=== PATIENT | male | born 1945 | race Caucasian/White ===

== ENCOUNTER 2017-11-01 08:30 | Inpatient (IN) ==
--- NOTE | 2017-12-15 18:00 | MH ---
cc: Bull Lazar Rohit K MD Watry,Wing Tiffanie Palacios MD,Cas DELGADO (Emdat Autofax) DATE OF ADMISSION: 12/18/2017 ADMITTING DIAGNOSIS: Lumbar degenerative disk disease. HISTORY OF PRESENT ILLNESS: This is a 72-year-old male who presented to us for an evaluation of low back pain that he has had for the last 5 years, progressively getting worse and it has been real bad over the last 3 years. He currently rates his pain as 10/10. He denies any radiculopathy or paresthesias in the lower extremities. He states that his legs will buckle on him. His pain improves with lying down. He has been on pain management and had extensive pain management strategies including rhizotomies in a total of 5, as well as 5 sets of 3 epidural steroid injections. He has been to physical therapy had 5 sessions, which exacerbated his pain. He states that he can only stand for about 10-15 minutes. He states that he has tried to avoid walking. If he has to walk, such as when he goes to the store, he finds a place to sit or stays in the car. He had an epidural stimulator placed, which also was not helping. He has a history of coronary artery disease with stent placement in 2014. He also has a history of protein in his blood that causes blood clots and states that he has had a pulmonary embolus in 2013. 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 PAST MEDICAL HISTORY: Significant for: 1. Pulmonary embolus. 2. Coronary artery disease, status post coronary stent placement. 3. Hyperlipidemia. 4. Hypertension. 5. Emphysema. 6. Anemia. 7. Several vocal cord biopsies, 2011, 2013, 2014. 7. Cholecystectomy. 8. Tonsillectomy bilaterally, 2013. CURRENT MEDICATIONS: 1. Aspirin 81 mg daily. 2. Simvastatin 80 mg daily. 3. Omeprazole 40 mg daily. 4. Multivitamin daily. 5. Lisinopril 20 mg p.o. daily. 6. [place] 7.5/325. 7. Fish oil 1000 mg. This was placed on hold prior to surgical intervention. 8. Coumadin 4 mg. This was placed on hold prior to surgical intervention. 9. Carvedilol 12.5 mg. ALLERGIES: HE HAS NO KNOWN DRUG ALLERGIES. SOCIAL HISTORY: The patient drinks alcohol. He quit smoking 5 years ago. He was smoking half a pack for 25 years. FAMILY HISTORY: His mother is . His father is , has a history of congestive heart failure and at age 85. REVIEW OF SYSTEMS: CONSTITUTIONAL: He denies any fever or chills. EARS, NOSE AND THROAT: The patient has had previous biopsies of his vocal cord. Mild voice hoarseness. No nasal drainage. CARDIOVASCULAR: Denies any chest pain or palpitations. RESPIRATORY: No cough or shortness of breath. GENITOURINARY: No dysuria or hematuria. MUSCULOSKELETAL: Positive for low back pain. INTEGUMENTARY: No rashes or pruritus. NEUROLOGIC: No difficulty with speech and memory. PSYCHIATRIC: No anxiety or depression symptoms. ENDOCRINE: No polyuria, polydipsia. HEMATOLOGIC: Positive for bruising secondary to his Coumadin use. PHYSICAL EXAMINATION: HEENT: Head is normocephalic, atraumatic. NECK: Supple. No carotid bruits. LUNGS: Clear to auscultation bilaterally. HEART: Normal sinus rhythm. He has 3/5 right sternal border murmur. ABDOMEN: Soft, nontender, positive bowel sounds. SKIN: No cyanosis or erythema. MUSCULOSKELETAL: He has 5/5 strength in the lower extremities. He ambulates without any assistive device. NEUROLOGIC: He is awake, alert, and oriented. Cranial nerves 2-12 are grossly intact. Her speech is fluent. Comprehension is good. Reflexes are 2+ in the lower extremities. DATA REVIEWED: MRI of the lumbar spine reveals multilevel degenerative disk disease with facet arthropathy, most pronounced at the L4/L5 and L5-S1 levels with associated grade 1 spondylolisthesis, but other levels are also degenerated. IMPRESSION: A 71-year-old male with a chronic history of low back pain, which is intractable essentially. The patient and his state that he is unable to walk even short distances and basically sleeps and sits on the couch all day. He underwent physical therapy which aggravated his symptoms. He has undergone multiple bouts of interventional pain management including rhizotomies. He has a dorsal column spinal stimulator in place, which he says is not working to control his pain and he wants this removed. The patient is requesting that we undertake a lumbar spine surgery. He has not been able to find somebody to remove his spinal stimulator. Again, he has multilevel degenerative disk disease with facet arthropathy, most pronounced at the L4/L5 and L5-S1 level with associated grade 1 spondylolisthesis, but other levels are also degenerated. PLAN: We have discussed treatment options, which include continued conservative treatment measures with physical therapy and pain management, which he states has not helped him in the past versus surgical intervention, which would entail an L4/L5 and L5-S1 interbody fusion with cage and pedicle screw fixation. We have discussed the risk involved with surgery, which given his history of pulmonary embolus as well as coronary artery disease with anticardiolipin antibody, and he is on chronic Coumadin therapy. The patient and his are willing to accept the risks of surgery, which include, but are not limited to bleeding, infection, muscle weakness, voice hoarseness, difficulty swallowing, heart attack, stroke, blood clots in his arms, legs, and lungs, heart attack, stroke, as well as muscle weakness among others. He also understands that lumbar spine surgery will not make him pain free, but the goal is to lessen his pain and allow him to be able to ambulate with less pain, but there is also possibility that he may not benefit from surgery and even be worse afterwards. 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 Again, the patient states that he understands the procedure as well as the risks involved and he is requesting that we proceed and he was therefore scheduled accordingly. KINJAL Haas MD KOBE/ct , 04:53 PM , 05:07 PM ELSA
[2017-12-18] MEDS ORDERED: Chlorhexidine Gluconate 2% 1 Pack (2 Cloths) TOPICAL ONE (06:34)
[2017-12-18] MEDS ORDERED: Metoprolol Tartrate 25 MG Tablet PO ONE (06:34)
[2017-12-18] MEDS ORDERED: Vancomycin Inj 1,000 MG in Sodium Chlor 0.9% Inj 250 ML IV.SIG PRN (06:36)
[2017-12-18] MEDS ORDERED: Sodium Chlor 0.9% Inj 500 ML IV.SIG SCH (07:00)
[2017-12-18 07:41] LABS: INR 1.1 Ratio; Prothrombin Time 11.6 sec (9.8-11.6)
[2017-12-18] MEDS ORDERED: Thrombin Topical Soln 5,000 UNIT Vial TOPICAL ONE ×2 (07:49→07:55)
[2017-12-18] MEDS ORDERED: Bupivacaine/Epinephrine 0.5% Inj 50 ML Vial ONE (07:49)
[2017-12-18] MEDS ORDERED: Gelatin Size 100 Topical Foam ONE ×2 (07:49→09:03)
[2017-12-18] MEDS: Sod Chloride 0.9% Inj 1,000 ML IV.SIG SCH (08:15)
[2017-12-18] MEDS ORDERED: Phenylephrine/NS 1000 MCG/10ML Syringe IV.PUSH ONE (08:36)
[2017-12-18] MEDS ORDERED: Sodium Chlor 0.9% Inj 250 ML IV.CONT ONE (08:36)
[2017-12-18] MEDS ORDERED: Lidocaine PF 1% Inj 5 ML Syringe OTHER ONE (08:36)
[2017-12-18] MEDS ORDERED: Glycopyrrolate Inj 1 MG/5 ML Syringe IV.PUSH ONE (08:36)
[2017-12-18] MEDS ORDERED: Artificial Tears Opth Oint 3.5 GM Tube ONE (08:41)
[2017-12-18] MEDS ORDERED: Thrombin Topical 20,000 UNIT Spray Kit TOPICAL ONE (11:19)
[2017-12-18] MEDS ORDERED: Menthol 5.8 MG Lozenge BUCCAL PRN (13:34)
[2017-12-18] MEDS ORDERED: Bisacodyl 10 MG Supp RECTAL PRN (13:34)
[2017-12-18] MEDS ORDERED: Potassium Chlor 20 mEq Premix 20 MEQ/100 ML PIGGYBACK IV.SIG PRN (13:34)
[2017-12-18] MEDS ORDERED: Aluminum/Magnesium/Simethacone Susp 30 ML UDC PO PRN (13:34)
[2017-12-18] MEDS ORDERED: Calcium Gluconate Inj 1 GM in Sodium Chlor 0.9% Inj 100 ML IV.SIG PRN (13:34)
[2017-12-18] MEDS ORDERED: Zolpidem Tartrate 5 MG Tablet PO PRN (13:34)
[2017-12-18] MEDS ORDERED: Magnesium Sulfate Inj 2 GM in Sodium Chlor 0.9% Inj 96 ML IV.SIG PRN (13:34)
--- NOTE | 2017-12-18 13:46 | P.OP ---
- Preoperative Diagnosis (1) Chronic low back pain with bilateral sciatica (2) Lumbar degenerative disc disease (3) Spondylolisthesis, lumbar region (4) Lumbar facet arthropathy (5) Neural foraminal stenosis of lumbosacral spine Date of procedure: 12/18/17 Procedure: L4-5 and L5-S1 interbody fusion; L4, L5 and S1 decompressive laminotomies with facetectomies and foraminotomies; L4-S1 pedicle screw fixation; L4-5 interbody cage placement; microsurgical technique Anesthesia: GETA Surgeon: Reji Matos MD Firebreak Cutter: Virginia Ricketts Estimated blood loss (mL): 300 Operation and Findings: This was a difficult case due to severe degenerative disc disease with associated spondylolisthesis and extensive epidural fibrosis and scar tissue inflammatory response. The [id number] details of the procedure, indications, alternatives, risks and potential complications were fully discussed with the patient. The patient fully understood. All the questions were answered. No guarantees were given. The patient voiced requesting the procedure and provided informed consents. The patient was offered the alternative of delaying the procedure and continuing with nonsurgical management. Prior to the procedure, the surgical incision was marked in the preoperative surgical holding room, and the procedure, risks, and potential complications revisited with the patient. Placement of electrodes for intraoperative neurophysiological monitoring was completed. The patient was taken to the operative room, and following induction of general anesthesia, endotracheal intubation was performed. A Lopez catheter, bilateral LAURA hose and sequential compression devices were placed and kept throughout the procedure. The patient was positioned prone, over a Darci table over a Sushant frame. All pressure in the preoperative surgical holding room points were carefully padded. The eyes were tapped shut after ointment was applied by the anesthesiologist to prevent corneal abrasion. A Marko hugger was placed over the exposed lower body to maintain control of the core body temperature. The lumbar region was prepped and draped in the usual sterile fashion. Once the patient was positioned, a localizing cross-table lateral x-ray was performed with a C-arm. A right paramedian incision was outlined on the skin approximately 3cm from the midline. The skin incision made with a #10 blade. Small bleeders were controlled with the cautery. The dissection was then carried out into deeper planes and through the thoracolumbar fascia with a Bovie. The intermuscular septum was identified and the mucles were blunted dissected along the septum. The facets and transverse process at the left L4-5 and L5-S1 levels were exposed and the proper anatomical landmarks were identified. A microsurgical self-retaining retractor was placed on the incision , and a localizing lateralizing cross-table x-ray was performed. Intraoperative microscope magnification used for further dissection. There was significant facet and ligamentum flavum hypertrophy noted. The left L4-5 and L5 -S1 facets were resected with a drill bit along with the lamina and there was severe foraminal and lateral recess stenosis from hypertrophied ligamentum flavum along with the spondylolisthesis and disc height collapse and facet hypertrophy which was decompressed. There was disc height collapse from the degeneration along with disc protrusion also leading to the foraminal stenosis. There was extensive facet and ligamentum flavum hypertrophy with epidural fibrosis from the inflammation with a difference to the dura which had to be gently peeled off of but no CSF leak was encountered. Epidural hemostasis was achieved with bipolar cautery and Gelfoam with thrombin. Subsequently entered into the disc space at the L4-5 and L5-S1 levels with a #15 blade and sofie were used for discectomy. The L5-S1 level could not be distracted and was locked in place and after decorticating the endplates a pack this was local autograft bone for interbody fusion. I then placed PEEK cage at the L4-5 level packed with local autograft bone and more local autograft bone was packed adjacent to the cage in interspace for added interbody fusion. With placement of the cage, I was able to distract the interspace and opened up the foramen further bilaterally. Subsequently in order to facilitate the fusion and provide stabilization, pedicle screw fixation was undertaken using [place] spine screws on entry point at the left L4, L5 levels at the junction of the transverse process and facet and the left S1 through the sacral ala and pedicle into the body. Subsequently using AP and lateral fluoroscopy tap and screw placement. The screws were then connected with a margarette and locked in place with caps. The construct appeared very secure at this point. The area was then copiously irrigated with Vancomycin solution and powder. The retractors were removed and the bipolar cautery used for hemostasis. The muscle fascia was then approximated using 2-0 Vicryl interrupted stitches and then 3-0 Vicryl subcuticular stitches also placed in interrupted fashion. The final skin closure was completed with Mastisol and Steri-Strips. A sterile dressing was then applied. The patient then turned in supine position, extubated and taken to recovery room. There were no intraoperative complications. All sponge and needle counts were correct at the end of procedure. Estimated blood loss about 300 ml.
[2017-12-18] MEDS ORDERED: Sugammadex Inj 200 MG/2 ML Vial IV.PUSH ONE (13:58)
[2017-12-18] MEDS ORDERED: fentaNYL Citrate Inj 100 MCG/2 ML Ampul ONE ×2 (13:58→13:59)
--- NOTE | 2017-12-18 13:59 | XR ---
EXAM DATE: 12/18/2017 12:00 AM EDT AGE/SEX: 72 years / Male INDICATIONS: Post-op L4-L5, L5-S1 posterior lumbar fusion. CLINICAL DATA: This is the patient's initial encounter. Patient reports that signs and symptoms have been present for 1 day and indicates a pain score of Nonresponsive. MEDICAL/SURGICAL HISTORY: Non-responsive. Non-responsive. COMPARISON: No prior exams available for comparison. FINDINGS: 2 coned-down views of the lower lumbar spine demonstrate left-sided transpedicular screw and margarette fixa tion at L4 S1. Hardware appears intact and grossly well-positioned. Advanced degenerative changes are noted at L4-5 and L5-S1 with mild anterolisthesis of L5 on S1. CONCLUSION: 1. L4-S1 posterior fixation, as above. Electronically signed by: Sanjiv Solis MD 12/18/2017 1:58 PM EDT
[2017-12-18] MEDS ORDERED: *morphine SULFATE 4 MG/ML PERIprocedure ONLY ONE ×2 (14:04→14:38)
[2017-12-18 14:16] LABS: Baso % (Auto) 0.2 % (0.0-2.0); Eos % (Auto) 0.1 % (0.0-4.0); Hematocrit 32.4 % (39.0-51.0); Lymph # (Auto) 0.6 th/mm3 (1.0-4.8); Lymph % (Auto) 11.3 % (9.0-44.0); Mean Corpuscular HGB Conc 34.1 % (32.0-36.0); Mean Corpuscular Hemoglobin 35.3 pg (27.0-34.0); Mean Corpuscular Volume 103.7 fL (80.0-100.0); Mean Platelet Volume 6.7 fL (7.0-11.0); Mono # (Auto) 0.1 th/mm3 (0.0-0.9); Mono % (Auto) 1.8 % (0.0-8.0); Neut # (Auto) 4.8 th/mm3 (1.8-7.7); Neut % (Auto) 86.6 % (16.0-70.0); Platelet Count 146 th/mm3 (150-450); Red Blood Count 3.13 mil/mm3 (4.50-5.90); Red Cell Distribution Width 14.3 % (11.6-17.2); White Blood Count 5.6 th/mm3 (4.0-11.0)
[2017-12-18 14:30] LABS: Calcium 8.1 mg/dL (8.5-10.1); Carbon Dioxide 25.9 meq/L (21.0-32.0); Magnesium 1.2 mg/dL (1.5-2.5)
[2017-12-18] MEDS: Senna/Docusate Sodium 8.6/50 MG Tablet PO SCH (21:28)
[2017-12-18] MEDS: Calcium Carbonate 500 MG Tablet PO SCH (21:30)
[2017-12-18] MEDS: Carvedilol 12.5 MG Tablet PO SCH (21:32)
[2017-12-18] MEDS: Morphine Inj 4 MG/ML Vial IV.PUSH PRN (23:47)
[2017-12-19] MEDS: Calcium Carbonate 500 MG Tablet PO SCH ×2 (08:08→20:23)
[2017-12-19] MEDS: Lisinopril 20 MG Tablet PO SCH (08:08)
[2017-12-19] MEDS: Senna/Docusate Sodium 8.6/50 MG Tablet PO SCH ×2 (08:09→20:23)
[2017-12-19] MEDS: Carvedilol 12.5 MG Tablet PO SCH ×2 (08:10→20:23)
--- NOTE | 2017-12-19 09:21 | P.PNNS ---
Subjective Interval history: Pt s/p L4-5 and L5-S1 interbody fusion; L4, L5 and S1 decompressive laminotomies with facetectomies and foraminotomies; L4-S1 pedicle screw fixation ; L4-5 interbody cage placement; microsurgical technique on 12/18/17. He complains of incisional back pain. No radiculopathy in LEs. No numbness currently. Pt with soreness especially with repositioning. <Bull Lazar - Last Filed: 12/19/17 09:14> Physical Exam Vital signs: Vital Signs 12/18/17 13:38 12/18/17 14:00 12/18/17 14:15 Temperature 98.7 F Pulse Rate 79 77 74 Respiratory Rate 12 11 L 13 Blood Pressure 143/46 H 170/83 H 150/81 H Pulse Oximetry 93 L 95 93 L 12/18/17 14:30 12/18/17 14:45 12/18/17 16:00 Temperature 97.9 F 97.7 F Pulse Rate 75 75 66 Respiratory Rate 14 9 L 18 Blood Pressure 161/83 H 164/88 H 169/85 H Pulse Oximetry 95 95 95 12/18/17 17:20 12/18/17 17:50 12/18/17 20:00 Temperature 97.6 F Pulse Rate 72 Respiratory Rate 18 18 18 Blood Pressure 162/86 H Pulse Oximetry 98 12/18/17 21:36 12/18/17 23:53 12/19/17 00:00 Temperature 97.9 F Pulse Rate 73 Respiratory Rate 18 18 Blood Pressure 172/82 H 175/87 H Pulse Oximetry 97 12/19/17 02:25 12/19/17 04:56 12/19/17 08:00 Temperature 97.5 F L 97.6 F Pulse Rate 62 67 Respiratory Rate 18 18 18 Blood Pressure 139/75 129/79 Pulse Oximetry 97 99 Intake & Output 12/18/17 12/19/17 12/19/17 18:59 06:59 18:59 Intake Total 1560 / 1560 2340 / 2340 Output Total 1200 / 1200 750 / 750 Balance 360 / 360 1590 / 1590 Weight 96.2 kg 96.2 kg Intake: IV 200 / 200 1100 / 1100 NS + KCl 20 mEq Inj 1,000 ML @ 1000 / 1000 100 mls/hr IV.CONT .Q10H [facility] Rx #:[id number] Magnesium Sulfate Inj 2 GM In 100 / 100 NS Inj 96 ML @ 100 mls/hr IV. SIG UNSCH PRN Rx#:[id number] Ancef Inj 1,000 MG In NS Inj 100 / 100 100 / 100 100 ML @ 200 mls/hr IV.SIG Q8H [facility] Rx#:[id number] Oral 360 / 360 1240 / 1240 Anesthesia Amount 1000 / 1000 Output: Urine 750 / 750 Estimated Blood Loss 350 / 350 Urine Amount (Catheter) 850 / 850 Indwelling Urethral Catheter 850 / 850 Other: Date of Last Bowel Movement 12/18/17 12/18/17 # Bowel Movements 0 - Constitutional no acute distress - Routine HEENT Exam Head: Present: normocephalic Eye: Present: PERRL - Routine Respiratory Exam Present: CTA bilaterally. Absent: respiratory distress, rhonchi, wheezes - Routine Cardiovascular Exam Present: RRR, S1, S2, murmur (2/6 systolic ejection murmur.) - Routine Abdominal Exam Present: soft, normoactive bowel sounds. Absent: distended - Routine Skin Exam Absent: cyanosis, erythema Comments: Pt log rolled incision clean and dry. No signs of infection or complication. New bandage placed. - Routine Neurological Exam Present: alert, oriented X3, moving all extremities, normal speech. Absent: sensory deficit, motor deficit - Routine Psychiatric Exam Present: normal affect, cooperative. Absent: anxious, agitated - Urinary Catheter Management Indwelling Urethral Catheter Cath placed during this visit: yes, but has since been removed by the nurse Reason for continuing: Decision to DC catheter Insertion date: 12/18/17 Removal date: 12/18/17 Removal time: 15:30 <Bull Lazar - Last Filed: 12/19/17 09:14> Vital signs: Vital Signs 12/18/17 13:38 12/18/17 14:00 12/18/17 14:15 Temperature 98.7 F Pulse Rate 79 77 74 Respiratory Rate 12 11 L 13 Blood Pressure 143/46 H 170/83 H 150/81 H Pulse Oximetry 93 L 95 93 L 12/18/17 14:30 12/18/17 14:45 12/18/17 16:00 Temperature 97.9 F 97.7 F Pulse Rate 75 75 66 Respiratory Rate 14 9 L 18 Blood Pressure 161/83 H 164/88 H 169/85 H Pulse Oximetry 95 95 95 12/18/17 17:20 12/18/17 17:50 12/18/17 20:00 Temperature 97.6 F Pulse Rate 72 Respiratory Rate 18 18 18 Blood Pressure 162/86 H Pulse Oximetry 98 12/18/17 21:36 12/18/17 23:53 12/19/17 00:00 Temperature 97.9 F Pulse Rate 73 Respiratory Rate 18 18 Blood Pressure 172/82 H 175/87 H Pulse Oximetry 97 12/19/17 02:25 12/19/17 04:56 12/19/17 08:00 Temperature 97.5 F L 97.6 F Pulse Rate 62 67 Respiratory Rate 18 18 18 Blood Pressure 139/75 129/79 Pulse Oximetry 97 99 Intake & Output 12/18/17 12/19/17 12/19/17 18:59 06:59 18:59 Intake Total 1560 / 1560 2340 / 2340 Output Total 1200 / 1200 750 / 750 Balance 360 / 360 1590 / 1590 Weight 96.2 kg 96.2 kg Intake: IV 200 / 200 1100 / 1100 NS + KCl 20 mEq Inj 1,000 ML @ 1000 / 1000 100 mls/hr IV.CONT .Q10H [facility] Rx #:[id number] Magnesium Sulfate Inj 2 GM In 100 / 100 NS Inj 96 ML @ 100 mls/hr IV. SIG UNSCH PRN Rx#:[id number] Ancef Inj 1,000 MG In NS Inj 100 / 100 100 / 100 100 ML @ 200 mls/hr IV.SIG Q8H [facility] Rx#:[id number] Oral 360 / 360 1240 / 1240 Anesthesia Amount 1000 / 1000 Output: Urine 750 / 750 Estimated Blood Loss 350 / 350 Urine Amount (Catheter) 850 / 850 Indwelling Urethral Catheter 850 / 850 Other: Date of Last Bowel Movement 12/18/17 12/18/17 # Bowel Movements 0 - Urinary Catheter Management Indwelling Urethral Catheter Cath placed during this visit: no <Reji Matos - Last Filed: 12/19/17 13:12> Assessment and Plan - Assessment (1) Chronic low back pain with bilateral sciatica Code(s): M54.41 - Lumbago with sciatica, right side; M54.42 - Lumbago with sciatica, left side; G89.29 - Other chronic pain Status: Chronic (2) Lumbar degenerative disc disease Code(s): M51.36 - Other intervertebral disc degeneration, lumbar region Status : Chronic (3) Spondylolisthesis, lumbar region Code(s): M43.16 - Spondylolisthesis, lumbar region Status: Chronic (4) Lumbar facet arthropathy Code(s): M47.816 - Spondylosis without myelopathy or radiculopathy, lumbar region Status: Chronic (5) Neural foraminal stenosis of lumbosacral spine Code(s): M99.83 - Other biomechanical lesions of lumbar region Status: Chronic - Plan 72 y/o M s/p L4-5 and L5-S1 interbody fusion; L4, L5 and S1 decompressive laminotomies with facetectomies and foraminotomies; L4-S1 pedicle screw fixation ; L4-5 interbody cage placement; microsurgical technique on 12/18/17. He has incisional pain. P: OOB to chair with PT with brace. Continue with pain control. Pt will benefit from rehab placement by end of week <Bull Lazar - Last Filed: 12/19/17 09:14> - Attending Attestation The exam, history, and the medical decision-making described in the above note were completed with the assistance of the mid-level provider. I reviewed and agree with the findings presented. I attest that I had a [id number] encounter with the patient on the same day, and personally performed and documented my assessment and findings in the medical record. <Reji Matos - Last Filed: 12/19/17 13:12>
[2017-12-19] MEDS: Magnesium Oxide 400 MG Tablet PO SCH (10:53)
[2017-12-19] MEDS: Morphine Inj 4 MG/ML Vial IV.PUSH PRN (10:53)
[2017-12-19] MEDS: Sod Chloride 0.9% Inj 1,000 ML IV.SIG SCH (14:56)
[2017-12-20] MEDS: Sod Chloride 0.9% Inj 1,000 ML IV.SIG SCH (08:06)
[2017-12-20] MEDS: Senna/Docusate Sodium 8.6/50 MG Tablet PO SCH ×2 (09:11→20:19)
[2017-12-20] MEDS: Calcium Carbonate 500 MG Tablet PO SCH ×2 (09:12→20:19)
[2017-12-20] MEDS: Lisinopril 20 MG Tablet PO SCH (09:12)
[2017-12-20] MEDS: Carvedilol 12.5 MG Tablet PO SCH ×2 (09:12→20:19)
--- NOTE | 2017-12-20 09:30 | P.PNNS ---
Subjective Interval history: Pt awake and alert. Denies chest pain or sob. Incisional pain a little better today. No radiculopathy in LEs. <Bull Lazar - Last Filed: 12/20/17 09:26> Physical Exam Vital signs: Vital Signs 12/19/17 12:00 12/19/17 16:00 12/19/17 16:16 Temperature 98.2 F 97.7 F Pulse Rate 67 80 Respiratory Rate 18 16 Blood Pressure 92/56 L 135/81 Pulse Oximetry 93 L 91 L 12/19/17 19:13 12/19/17 23:03 12/20/17 04:00 Temperature 99.1 F 97.5 F L 97.6 F Pulse Rate 78 78 72 Respiratory Rate 18 Blood Pressure 137/74 118/64 125/69 Pulse Oximetry 96 95 95 Intake & Output 12/19/17 12/20/17 12/20/17 18:59 06:59 18:59 Intake Total 4070 / 4070 360 / 360 Output Total 800 / 800 Balance 3270 / 3270 360 / 360 Weight 96.2 kg Intake: IV 3350 / 3350 NS + KCl 20 mEq Inj 1,000 ML @ 2000 / 2000 100 mls/hr IV.CONT .Q10H [facility] Rx #:[id number] LR 1000 mL Inj 1,000 ML @ 30 1000 / 1000 mls/hr IV.SIG .Q24H [facility] Rx#: [id number] Ancef Inj 1,000 MG In NS Inj 100 / 100 100 ML @ 200 mls/hr IV.SIG Q8H [facility] Rx#:[id number] Oral 720 / 720 360 / 360 Output: Urine 800 / 800 Other: # Voids 2 2 Date of Last Bowel Movement 12/17/17 # Bowel Movements 0 0 - Constitutional no acute distress - Routine HEENT Exam Head: Present: normocephalic Eye: Present: PERRL - Routine Respiratory Exam Present: CTA bilaterally. Absent: respiratory distress, rhonchi, wheezes - Routine Cardiovascular Exam Present: RRR, S1, S2, murmur (2/6 systolic ejection murmur.) - Routine Abdominal Exam Present: distended (mild.), firm (mild.). Absent: normoactive bowel sounds ( Diminished.), tenderness - Routine Skin Exam Absent: cyanosis, erythema - Routine Neurological Exam Present: alert, oriented X3, moving all extremities, normal speech. Absent: sensory deficit, motor deficit - Routine Psychiatric Exam Present: normal affect, cooperative. Absent: anxious, agitated - Urinary Catheter Management Indwelling Urethral Catheter Cath placed during this visit: yes, but has since been removed by the nurse Reason for continuing: Decision to DC catheter Insertion date: 12/18/17 Removal date: 12/18/17 Removal time: 15:30 <Bull Lazar - Last Filed: 12/20/17 09:26> Vital signs: Vital Signs 12/19/17 16:16 12/19/17 19:13 12/19/17 23:03 Temperature 99.1 F 97.5 F L Pulse Rate 78 78 Respiratory Rate 16 18 18 Blood Pressure 137/74 118/64 Pulse Oximetry 96 95 12/20/17 04:00 12/20/17 08:00 12/20/17 12:00 Temperature 97.6 F 98.3 F 98.6 F Pulse Rate 72 75 76 Respiratory Rate 18 16 17 Blood Pressure 125/69 137/70 150/79 H Pulse Oximetry 95 96 95 Intake & Output 12/19/17 12/20/17 12/20/17 18:59 06:59 18:59 Intake Total 4070 / 4070 360 / 360 Output Total 800 / 800 Balance 3270 / 3270 360 / 360 Weight 96.2 kg Intake: IV 3350 / 3350 NS + KCl 20 mEq Inj 1,000 ML @ 2000 / 2000 100 mls/hr IV.CONT .Q10H [facility] Rx #:[id number] LR 1000 mL Inj 1,000 ML @ 30 1000 / 1000 mls/hr IV.SIG .Q24H [facility] Rx#: [id number] Ancef Inj 1,000 MG In NS Inj 100 / 100 100 ML @ 200 mls/hr IV.SIG Q8H [facility] Rx#:[id number] Oral 720 / 720 360 / 360 Output: Urine 800 / 800 Other: # Voids 2 2 Date of Last Bowel Movement 12/17/17 # Bowel Movements 0 0 - Urinary Catheter Management Indwelling Urethral Catheter Cath placed during this visit: no <Reji Matos - Last Filed: 12/20/17 16:13> Assessment and Plan - Assessment (1) Chronic low back pain with bilateral sciatica Code(s): M54.41 - Lumbago with sciatica, right side; M54.42 - Lumbago with sciatica, left side; G89.29 - Other chronic pain Status: Chronic (2) Lumbar degenerative disc disease Code(s): M51.36 - Other intervertebral disc degeneration, lumbar region Status : Chronic (3) Spondylolisthesis, lumbar region Code(s): M43.16 - Spondylolisthesis, lumbar region Status: Chronic (4) Lumbar facet arthropathy Code(s): M47.816 - Spondylosis without myelopathy or radiculopathy, lumbar region Status: Chronic (5) Neural foraminal stenosis of lumbosacral spine Code(s): M99.83 - Other biomechanical lesions of lumbar region Status: Chronic - Plan 72 y/o M s/p L4-5 and L5-S1 interbody fusion; L4, L5 and S1 decompressive laminotomies with facetectomies and foraminotomies; L4-S1 pedicle screw fixation ; L4-5 interbody cage placement; microsurgical technique on 12/18/17. He has incisional pain. P: OOB, increase walking distance. Pt given laxatives yesterday and will continue today. Continue with pain control. Pt will benefit from rehab placement by end of week <Bull Lazar - Last Filed: 12/20/17 09:26> - Attending Attestation The exam, history, and the medical decision-making described in the above note were completed with the assistance of the mid-level provider. I reviewed and agree with the findings presented. I attest that I had a [id number] encounter with the patient on the same day, and personally performed and documented my assessment and findings in the medical record. <Reji Matos - Last Filed: 12/20/17 16:13>
[2017-12-20] MEDS: Morphine Inj 4 MG/ML Vial IV.PUSH PRN ×2 (12:00→17:49)
[2017-12-20] MEDS: Magnesium Oxide 400 MG Tablet PO SCH (12:00)
[2017-12-20] MEDS: Acetaminophen 325 MG Tablet PO PRN (22:37)
--- NOTE | 2017-12-21 09:11 | P.PNNS ---
Subjective Interval history: Pt awakens to voice. Complains of lumbar soreness. No radiculopathy in LEs. Pt with periods of fatigue. He is constipated. <Bull Lazar - Last Filed: 12/21/17 09:06> Physical Exam Vital signs: Vital Signs 12/20/17 12:00 12/20/17 16:00 12/20/17 17:46 Temperature 98.6 F 99.4 F Pulse Rate 76 80 Respiratory Rate 17 17 Blood Pressure 150/79 H 157/80 H Pulse Oximetry 95 96 96 12/20/17 20:05 12/20/17 23:00 12/21/17 04:39 Temperature 100.3 F H 99.6 F 98.3 F Pulse Rate 83 94 H 75 Respiratory Rate 17 18 18 Blood Pressure 166/94 H 154/80 H 138/80 Pulse Oximetry 98 98 95 Intake & Output 12/20/17 12/21/17 12/21/17 18:59 06:59 18:59 Intake Total 600 / 600 480 / 480 Output Total 1000 / 1000 1000 / 1000 Balance -400 / -400 -520 / -520 Weight 96.2 kg Intake: Oral 600 / 600 480 / 480 Output: Urine 1000 / 1000 1000 / 1000 Other: # Voids 2 Date of Last Bowel Movement 12/18/17 12/18/17 # Bowel Movements 0 0 - Constitutional no acute distress, cooperative - Routine HEENT Exam Head: Present: normocephalic Eye: Present: PERRL - Routine Respiratory Exam Present: CTA bilaterally. Absent: respiratory distress, rhonchi, wheezes - Routine Cardiovascular Exam Present: RRR, S1, S2, murmur (2/6 systolic ejection murmur.) - Routine Abdominal Exam Present: distended (mild to moderate.), firm (mild.). Absent: normoactive bowel sounds (Diminished.), tenderness - Routine Skin Exam Absent: cyanosis, erythema Comments: Bandage changed by RN early this morning. - Routine Neurological Exam Present: altered mental status (Some mild confusion.), moving all extremities. Absent: alert (Awakens to voice and light stimulation.), sensory deficit, motor deficit - Urinary Catheter Management Indwelling Urethral Catheter Cath placed during this visit: yes, but has since been removed by the nurse Reason for continuing: Decision to DC catheter Insertion date: 12/18/17 Removal date: 12/18/17 Removal time: 15:30 <Bull Lazar - Last Filed: 12/21/17 09:06> Vital signs: Vital Signs 12/20/17 16:00 12/20/17 17:46 12/20/17 20:05 Temperature 99.4 F 100.3 F H Pulse Rate 80 83 Respiratory Rate 17 17 Blood Pressure 157/80 H 166/94 H Pulse Oximetry 96 96 98 12/20/17 23:00 12/21/17 04:39 12/21/17 08:00 Temperature 99.6 F 98.3 F 100.2 F H Pulse Rate 94 H 75 78 Respiratory Rate 18 18 18 Blood Pressure 154/80 H 138/80 138/76 Pulse Oximetry 98 95 96 12/21/17 12:00 Temperature 99.4 F Pulse Rate 90 Respiratory Rate 20 Blood Pressure 154/88 H Pulse Oximetry 100 Intake & Output 12/20/17 12/21/17 12/21/17 18:59 06:59 18:59 Intake Total 600 / 600 480 / 480 Output Total 1000 / 1000 1000 / 1000 Balance -400 / -400 -520 / -520 Weight 96.2 kg Intake: Oral 600 / 600 480 / 480 Output: Urine 1000 / 1000 1000 / 1000 Other: # Voids 2 Date of Last Bowel Movement 12/18/17 12/18/17 # Bowel Movements 0 0 - Urinary Catheter Management Indwelling Urethral Catheter Cath placed during this visit: no <Reji Matos - Last Filed: 12/21/17 15:19> Assessment and Plan - Assessment (1) Chronic low back pain with bilateral sciatica Code(s): M54.41 - Lumbago with sciatica, right side; M54.42 - Lumbago with sciatica, left side; G89.29 - Other chronic pain Status: Chronic (2) Lumbar degenerative disc disease Code(s): M51.36 - Other intervertebral disc degeneration, lumbar region Status : Chronic (3) Spondylolisthesis, lumbar region Code(s): M43.16 - Spondylolisthesis, lumbar region Status: Chronic (4) Lumbar facet arthropathy Code(s): M47.816 - Spondylosis without myelopathy or radiculopathy, lumbar region Status: Chronic (5) Neural foraminal stenosis of lumbosacral spine Code(s): M99.83 - Other biomechanical lesions of lumbar region Status: Chronic - Plan 72 y/o M s/p L4-5 and L5-S1 interbody fusion; L4, L5 and S1 decompressive laminotomies with facetectomies and foraminotomies; L4-S1 pedicle screw fixation ; L4-5 interbody cage placement; microsurgical technique on 12/18/17. He has incisional pain. P: OOB, increase walking distance. Pt given laxatives yesterday and will continue today. Recommended a suppository this am. Continue with pain control. Decrease [place] to one tablet. Stop Morphine. Discussed with RN. Pt will benefit from rehab placement <Bull Lazar - Last Filed: 12/21/17 09:06> - Attending Attestation The exam, history, and the medical decision-making described in the above note were completed with the assistance of the mid-level provider. I reviewed and agree with the findings presented. I attest that I had a [id number] encounter with the patient on the same day, and personally performed and documented my assessment and findings in the medical record. He had a bout of confusion related to pain medications which has been cut back. He also has constipation and associated postop ileus. We will place him on scheduled lactulose along with the Colace and fleets enema. Check abdominal flat plate x- ray. Encourage incentive spirometry. Mechanical and chemical DVT prophylaxis. Discussed with and nursing staff. <Reji Matos - Last Filed: 12/21/17 15:19>
[2017-12-21] MEDS: Carvedilol 12.5 MG Tablet PO SCH ×2 (10:09→21:18)
[2017-12-21] MEDS: Calcium Carbonate 500 MG Tablet PO SCH ×2 (10:09→21:18)
[2017-12-21] MEDS: Lisinopril 20 MG Tablet PO SCH (10:09)
[2017-12-21] MEDS: Senna/Docusate Sodium 8.6/50 MG Tablet PO SCH ×2 (10:10→21:18)
[2017-12-21] MEDS: Magnesium Oxide 400 MG Tablet PO SCH (10:16)
[2017-12-21 14:26] LABS: Bacteria,Urine Rare /hpf; Bilirubin,Urine Negative (Negative); Clarity,Urine Clear (Clear); Color,Urine Yellow (Yellw/Straw); Glucose,Urine (UA) Negative (Negative); Leukocyte Esterase,Urine Negative (Negative); Mucus,Urine Few /lpf (Occasional); Nitrite,Urine Negative (Negative); Specific Gravity,Urine 1.009 (1.002-1.035); Squamous Epithelial Cell,Urine <1 /hpf (0-5)
--- NOTE | 2017-12-21 14:27 | XR ---
EXAM DATE: 12/21/2017 2:19 PM EDT AGE/SEX: 72 years / Male INDICATIONS: Abdomen pain. CLINICAL DATA: This is the patient's subsequent encounter. Patient reports that signs and symptoms h ave been present for 2 days and indicates a pain score of 3/10. MEDICAL/SURGICAL HISTORY: Gastroesophageal reflux disease. Hypertension. Hiatal hernia. Fusio n, lumbar. Cholecystectomy. spinal stimulator COMPARISON: No prior exams available for comparison. FINDINGS: The abdominal bowel gas pattern is normal. The spinal stimulator control unit projects over the left abdomen with the leads apparently entering the epidural space near the lumbosacral junction. Left-si ded 3 level transpedicular fixation from L4 through S1 with an intervertebral disc prostheses at L4-5 . Surgical clips in the left upper abdominal quadrant characteristic of prior cholecystectomy. Calcif ic nodule is partially visualized and incompletely evaluated in the right upper abdominal quadrant ne ar the edge of the image. CONCLUSION: 1. Nonobstructed bowel gas pattern. 2. Postsurgical changes as detailed above. 3. Calcific density in the right upper abdominal quadrant is overtly benign but nonspecific. Patient is status post cholecystectomy and the nodule projects over the hepatic dome. This could represent a large calcified granuloma. Electronically signed by: Ty Lazar MD 12/21/2017 2:25 PM EDT
[2017-12-21] MEDS ORDERED: Sod Phosphate/Sod Biphosphate (Adult) Enema 133 ML Bottle RECTAL ONE (14:30)
[2017-12-21] MEDS ORDERED: levoFLOXacin Liq 25 MG/ML 100 ML Bottle PO SCH (15:00)
[2017-12-21] MEDS: Heparin - SQ 10,000 UNITS/ML Vial SQ SCH ×2 (15:54→21:18)
[2017-12-21] MEDS ORDERED: levoFLOXacin 500 MG Tablet PO SCH (16:00)
--- NOTE | 2017-12-21 16:26 | XR ---
EXAM DATE: 12/21/2017 4:21 PM EDT AGE/SEX: 72 years / Male INDICATIONS: Fever. CLINICAL DATA: This is the patient's initial encounter. Patient reports that signs and symptoms have been present for 1 day and indicates a pain score of 0/10. MEDICAL/SURGICAL HISTORY: Gastroesophageal reflux disease. Hypertension. Hiatal hernia. Fusion, lumbar. Cholecystectomy. spinal stimulator . Fusion, lumbar. Cholecystectomy. spinal stimulator COMPARISON: POI, XR CHEST PA AND LAT, 12/13/2017. . FINDINGS: A single AP view of the chest demonstrates right basilar density. Cardiomegaly. Intrathecal catheters are seen along the mid thoracic spine. The cardiomediastinal contours are unremarkable. Osseous str uctures are intact. CONCLUSION: 1. Right basilar density likely infiltrate. 2. Cardiomegaly. Electronically signed by: Bull Cee MD 12/21/2017 4:25 PM EDT
--- NOTE | 2017-12-21 17:08 | P.CON ---
History of Present Illness Service: Hospitalist Consult date: 12/21/17 Requesting Physician: Reji Matos Reason for Consult: Medical management Primary Care Provider: Aaron Shah History of Present Illness: Mr. Trinidad is a pleasant 72-year-old male with a history of CAD, pulmonary embolism, hypertension who underwent L4-L5 and L5-S1 surgery on 2017 due to long-standing low back pain. Patient developed postop ileus. Hospitalist service was consulted for medical management. At the time of this interview, patient denies any chest pain, shortness of breath, fever or chills. However, he did have low-grade fever yesterday as well as today. He denies any cough. He also denies any dysuria, hematuria. He has a Lopez catheter. Patient does not talk much during the interview. Review of Systems All other systems reviewed negative except as stated in [facility] - History History Provided By: Patient - Medical History Medical History: Medical History (Last Reviewed 12/21/17 @ 07:44 by [employer]) Arthritis Back pain at L4-L5 level Esophageal hiatal hernia Full dentures GERD (gastroesophageal reflux disease) Hypertension Uses hearing aid - Surgical History Surgical History: Surgical History (Last Reviewed 12/21/17 @ 07:44 by [employer]) H/O heart artery stent Hx of cholecystectomy Status post insertion of spinal cord stimulator - Tobacco History Second Hand Smoke Exposure: No Tobacco Use In Past 30 Days: No Smoking Status: Former smoker Tobacco Type: Cigarettes - Alcohol History How Often Do You Have a Drink Containing Alcohol: 4 or more times a week - Substance Use History Substance History: No History of Abuse - Travel History Recent Travel in the [place] Within the Last 8 Weeks: No Recent Travel Out of the Country Within the Last 8 Weeks: No - Immunization History Tetanus Immunization: <5 Years Hx Influenza Vaccine This Season: No Medications and Allergies Active Medications: Active Medications Acetaminophen (Tylenol) 650 mg PO Q4H PRN PRN Reason: TEMPERATURE > 101.5 F Last Admin: 12/20/17 22:37 Dose: 650 mg Hydrocodone Bitart/Acetaminophen ([place] 10/325) 1 tab PO Q4H PRN PRN Reason: Pain Scale 1 To 5 Last Admin: 12/21/17 14:51 Dose: 1 tab Hydrocodone Bitart/Acetaminophen ([place] 10/325) 2 tab PO Q4H PRN PRN Reason: PAIN SCALE 6 TO 10 Last Admin: 12/20/17 19:53 Dose: 2 tab Al Hydrox/Mg Hydrox/Simethicone (Mag-Al Plus Susp Liq) 30 ml PO Q6H PRN PRN Reason: DYSPEPSIA Al Hydroxide/Mg Hydroxide (Milk Of Magnesia Liq) 30 ml PO Q12H PRN PRN Reason: Mild Constipation Albuterol (Albuterol Neb (Prn)) 2.5 mg NEB Q4HR NEB PRN PRN Reason: WHEEZING Aspirin (Ecotrin) 81 mg PO DAILY [facility] Last Admin: 12/21/17 10:09 Dose: 81 mg Bisacodyl (Dulcolax Supp) 10 mg RECTAL DAILY PRN PRN Reason: SEVERE CONSITIPATION Calcium Carbonate (Oscal) 500 mg PO BID [facility] Last Admin: 12/21/17 10:09 Dose: 500 mg Carvedilol (Coreg) 12.5 mg PO BID [facility] Last Admin: 12/21/17 10:09 Dose: 12.5 mg Clonidine HCl (Catapres) 0.1 mg NG/OG Q6H PRN PRN Reason: SYS BP GREATER THAN 170 MMHG Last Admin: 12/20/17 22:37 Dose: 0.1 mg Cyclobenzaprine HCl (Flexeril) 10 mg PO Q8H PRN PRN Reason: MUSCLE SPASM Last Admin: 12/21/17 01:35 Dose: 10 mg Heparin Sodium (Porcine) (Heparin Inj) 5,000 units SQ Q8HR [facility] Last Admin: 12/21/17 15:54 Dose: 5,000 units Sodium Chloride (Ns Inj) 500 mls @ 30 mls/hr IV.SIG .Q10H [facility] Last Admin: 12/18/17 08:15 Dose: Not Given Calcium Gluconate 1 gm/ Sodium (Chloride) 110 mls @ 110 mls/hr IV.SIG UNSCH PRN PRN Reason: SEE LABEL COMMENTS Magnesium Sulfate 2 gm/ Sodium (Chloride) 100 mls @ 100 mls/hr IV.SIG UNSCH PRN PRN Reason: MAGNESIUM LESS THAN 2 Last Infusion: 12/18/17 16:27 Dose: Infused Potassium Chloride (Kcl 20 Meq Premix Inj) 20 meq in 100 mls @ 50 mls/hr IV.SIG UNSCH PRN PRN Reason: POTASSIUM LESS THAN 4 Lactulose (Lactulose Liq) 30 ml PO BID [facility] Last Admin: 12/21/17 15:57 Dose: 30 ml Levofloxacin (Levaquin) 500 mg PO Q24H [facility] Last Admin: 12/21/17 15:55 Dose: 500 mg Lisinopril (Prinivil) 20 mg PO DAILY [facility] Last Admin: 12/21/17 10:09 Dose: 20 mg Magnesium Oxide (Mag-Ox) 400 mg PO DAILY@1100 [facility] Last Admin: 12/21/17 10:16 Dose: 400 mg Menthol (Conklin) 1 lozenge BUCCAL UNSCH PRN PRN Reason: SORE THROAT Metoclopramide HCl (Reglan Inj) 10 mg IV.PUSH Q8HR [facility]; Protocol Stop: 12/22/17 14:01 Last Admin: 12/21/17 15:55 Dose: 10 mg Morphine Sulfate (Morphine Inj) 4 mg IV.PUSH Q4H PRN PRN Reason: Pain Scale 7 to 10 Last Admin: 12/20/17 17:49 Dose: 4 mg Multivitamins (Theragran) 1 tab PO DAILY [facility] Last Admin: 12/21/17 10:09 Dose: 1 tab Ondansetron HCl (Zofran Inj) 4 mg IV.PUSH Q6H PRN PRN Reason: NAUSEA OR VOMITING Pantoprazole Sodium (Protonix) 40 mg PO DAILY [facility] Last Admin: 12/21/17 10:09 Dose: 40 mg Pravastatin Sodium (Pravachol) 80 mg PO DAILY@2100 [facility] Last Admin: 12/20/17 20:19 Dose: 80 mg Promethazine HCl (Phenergan Inj) 25 mg IM Q4H PRN PRN Reason: NAUSEA OR VOMITING Senna/Docusate Sodium (Freida-Colace) 1 tab PO BID [facility] Last Admin: 12/21/17 10:10 Dose: 1 tab Sennosides (Senokot) 17.2 mg PO Q12H PRN PRN Reason: Moderate Constipation Zolpidem Tartrate (Ambien) 5 mg PO HS PRN PRN Reason: INSOMNIA Allergies Allergy/AdvReac Type Severity Reaction Status Date / Time No Known Allergies Allergy Verified 12/18/17 07:05 Home Medications Medication Instructions Recorded Confirmed Type aspirin [Aspirin Low Dose] 81 mg PO DAILY 12/12/17 12/18/17 History calcium carbonate [Calcium 600] 600 mg PO BID 12/12/17 12/18/17 History carvedilol 12.5 mg PO BID 12/12/17 12/18/17 History hydrocodone-acetaminophen 1 tab PO Q6H PRN 12/12/17 12/18/17 History lisinopril 20 mg PO DAILY 12/12/17 12/18/17 History magnesium oxide 400 mg PO DAILY 12/12/17 12/18/17 History multivitamin [Daily Multiple] 1 tab PO DAILY 12/12/17 12/18/17 History omega 2-gfg-mth-fish oil [Fish Oil] 3 cap PO DAILY 12/12/17 12/18/17 History omeprazole 40 mg PO DAILY 12/12/17 12/18/17 History simvastatin 40 mg PO QPM 12/12/17 12/18/17 History warfarin [Coumadin] 5 mg PO 5XW 12/12/17 12/18/17 History warfarin [Coumadin] 7.5 mg PO 2XWEEK 12/12/17 12/18/17 History Physical Exam Vital signs: Vital Signs 12/20/17 17:46 12/20/17 20:05 12/20/17 23:00 Temperature 100.3 F H 99.6 F Pulse Rate 83 94 H Respiratory Rate 17 18 Blood Pressure 166/94 H 154/80 H Pulse Oximetry 96 98 98 12/21/17 04:39 12/21/17 08:00 12/21/17 12:00 Temperature 98.3 F 100.2 F H 99.4 F Pulse Rate 75 78 90 Respiratory Rate 18 18 20 Blood Pressure 138/80 138/76 154/88 H Pulse Oximetry 95 96 100 12/21/17 16:22 Temperature 101.5 F H Pulse Rate 83 Respiratory Rate 20 Blood Pressure 136/70 Pulse Oximetry 92 L Intake & Output 12/20/17 12/21/17 12/21/17 18:59 06:59 18:59 Intake Total 600 / 600 480 / 480 Output Total 1000 / 1000 1000 / 1000 Balance -400 / -400 -520 / -520 Weight 96.2 kg Intake: Oral 600 / 600 480 / 480 Output: Urine 1000 / 1000 1000 / 1000 Other: # Voids 2 Date of Last Bowel Movement 12/18/17 12/18/17 # Bowel Movements 0 0 Narrative: GENERAL: This is a well-nourished, well-developed patient, in no apparent distress. SKIN: No rashes, ecchymoses or lesions. Warm and dry. HEAD: Atraumatic. Normocephalic. No temporal or scalp tenderness. EYES: Pupils equal round and reactive. No injection or drainage. ENT: Nose without bleeding, purulent drainage or septal hematoma. Airway patent. NECK: Trachea midline. No lymphadenopathy. Supple, nontender, no meningeal signs. CARDIOVASCULAR: Regular rate and rhythm without murmurs, gallops, or rubs. No JVD. RESPIRATORY: Clear to auscultation. Breath sounds equal bilaterally. No wheezes , rhonchi. Mild bibasilar crackles noted. GASTROINTESTINAL: Abdomen soft, non-tender, nondistended. No guarding. MUSCULOSKELETAL: Extremities without clubbing, cyanosis, or edema. NEUROLOGICAL: Awake and alert. Cranial nerves II through XII intact. No focal neurological deficits. Normal speech. - Urinary Catheter Management Indwelling Urethral Catheter Cath placed during this visit: yes, but has since been removed by the nurse Reason for continuing: Decision to DC catheter Insertion date: 12/18/17 Removal date: 12/18/17 Removal time: 15:30 Assessment and Plan - Plan Mr. Trinidad is a 72-year-old male with a history of CAD, pulmonary embolism who underwent elective surgery of L4-L5 and L5-S1 on 12/18/2017. Hospital service was consulted for medical management and possible ileus. Patient reports no bowel movement in the last few days. He does not want to take any suppositories. He has had 2 episodes of low-grade fever. Lumbar area degenerative disc disease -Status post L4-L5 and L5-S1 interbody fusion, decompressive surgery. -Continue acetaminophen, Flexeril, [place], morphine for pain management. Constipation -Patient received lactulose as well as milk of magnesia. He does not want to take any suppository. -If he continues to refuse suppository we can consider magnesium citrate PO. Fever Possible aspiration pneumonia (CXR shows right basilar infiltrates) -Could be postop fever. -We will obtain chest x-ray which showed right basilar density likely infiltrate. -We will change Levaquin 500 mg to 750 mg daily. -Will add Flagyl for anaerobic coverage for possible aspiration pneumonia -Urine cx pending. -CBC, CMP pending. -Incentive spirometry. Full code. Patient was on Warfarin at home. We will continue anti-coagulation when okay with Neurosurgery.
[2017-12-21 17:33] LABS: Baso % (Auto) 0.3 % (0.0-2.0); Eos % (Auto) 0.4 % (0.0-4.0); Hematocrit 29.1 % (39.0-51.0); Hemoglobin 10.4 gm/dL (13.0-17.0); Lymph # (Auto) 1.1 th/mm3 (1.0-4.8); Lymph % (Auto) 13.2 % (9.0-44.0); Mean Corpuscular HGB Conc 35.6 % (32.0-36.0); Mean Corpuscular Hemoglobin 35.9 pg (27.0-34.0); Mean Corpuscular Volume 100.7 fL (80.0-100.0); Mean Platelet Volume 7.1 fL (7.0-11.0); Mono # (Auto) 0.9 th/mm3 (0.0-0.9); Mono % (Auto) 10.5 % (0.0-8.0); Neut # (Auto) 6.3 th/mm3 (1.8-7.7); Neut % (Auto) 75.6 % (16.0-70.0); Platelet Count 149 th/mm3 (150-450); Red Blood Count 2.89 mil/mm3 (4.50-5.90); Red Cell Distribution Width 13.8 % (11.6-17.2); White Blood Count 8.3 th/mm3 (4.0-11.0)
[2017-12-21 17:51] LABS: Carbon Dioxide 27.2 meq/L (21.0-32.0); Potassium 4.1 meq/L (3.5-5.1)
[2017-12-21] MEDS: metroNIDAZOLE 500 MG Tablet PO SCH (21:18)
[2017-12-22] MEDS: Acetaminophen 325 MG Tablet PO PRN (01:26)
[2017-12-22] MEDS: metroNIDAZOLE 500 MG Tablet PO SCH (03:54)
[2017-12-22 04:16] LABS: Baso % (Auto) 0.2 % (0.0-2.0); Eos % (Auto) 0.1 % (0.0-4.0); Hematocrit 31.8 % (39.0-51.0); Hemoglobin 10.8 gm/dL (13.0-17.0); Lymph # (Auto) 0.7 th/mm3 (1.0-4.8); Lymph % (Auto) 5.1 % (9.0-44.0); Mean Corpuscular HGB Conc 33.9 % (32.0-36.0); Mean Corpuscular Hemoglobin 34.5 pg (27.0-34.0); Mean Corpuscular Volume 101.7 fL (80.0-100.0); Mean Platelet Volume 7.5 fL (7.0-11.0); Mono # (Auto) 0.9 th/mm3 (0.0-0.9); Neut # (Auto) 11.4 th/mm3 (1.8-7.7); Neut % (Auto) 87.6 % (16.0-70.0); Platelet Count 184 th/mm3 (150-450); Red Blood Count 3.13 mil/mm3 (4.50-5.90); Red Cell Distribution Width 13.7 % (11.6-17.2); White Blood Count 13.1 th/mm3 (4.0-11.0)
[2017-12-22 04:37] LABS: Calcium 9.6 mg/dL (8.5-10.1); Carbon Dioxide 27.8 meq/L (21.0-32.0); Potassium 3.5 meq/L (3.5-5.1)
[2017-12-22] MEDS: Heparin - SQ 10,000 UNITS/ML Vial SQ SCH ×2 (05:19→14:00)
[2017-12-22 05:43] LABS: Platelet Estimate Normal (Normal); Platelet Morphology Normal (Normal)
[2017-12-22] MEDS ORDERED: Sod Chloride 0.9% Inj 1,000 ML IV.SIG SCH ×2 (09:00→22:27)
--- NOTE | 2017-12-22 09:38 | P.PNNS ---
Subjective Interval history: Pt awake and responds to questions. He complains of low back pain. No radiculopathy in LEs. No paresthesias in LEs. He follows simple commands. He is hypotensive this am with systolic bp in the 70's and 80's and I have spoken with Dr. John who request pt is transferred to ICU for closer monitoring which I agree with and transfer order written. <Bull Lazar - Last Filed: 12/22/17 09:41> Physical Exam Vital signs: Vital Signs 12/21/17 12:00 12/21/17 16:22 12/21/17 20:00 Temperature 99.4 F 101.5 F H 99.2 F Pulse Rate 90 83 83 Respiratory Rate 20 20 18 Blood Pressure 154/88 H 136/70 136/73 Pulse Oximetry 100 92 L 95 12/21/17 20:22 12/22/17 00:00 12/22/17 02:42 Temperature 102.9 F H 98.1 F Pulse Rate 101 H 96 H Respiratory Rate 24 Blood Pressure 106/53 L Pulse Oximetry 93 L 91 L 93 L 12/22/17 04:00 12/22/17 04:45 12/22/17 08:00 Temperature 98.7 F 98.1 F 98.3 F Pulse Rate 91 H 88 73 Respiratory Rate 20 18 18 Blood Pressure 77/53 L 98/54 L 85/54 L Pulse Oximetry 92 L 93 L 95 Intake & Output 12/21/17 12/22/17 12/22/17 18:59 06:59 18:59 Intake Total 480 / 480 360 / 360 Output Total 1400 / 1400 Balance -920 / -920 360 / 360 Weight 96.4 kg Intake: Oral 480 / 480 360 / 360 Output: Urine 1400 / 1400 Other: # Voids 2 Date of Last Bowel Movement 12/18/17 # Bowel Movements 0 - Constitutional Comments: Pt awake and responds to questions. Appears fatigued. - Routine HEENT Exam Head: Present: normocephalic Eye: Present: PERRL ENT: Present: oropharynx clear - Routine Neck Exam Present: trachea midline - Routine Respiratory Exam Present: CTA bilaterally. Absent: respiratory distress, rhonchi, wheezes - Routine Cardiovascular Exam Present: RRR, S1, S2. Absent: murmur - Routine Abdominal Exam Present: distended, firm. Absent: normoactive bowel sounds (Diminished) - Routine Extremities Exam Absent: cyanosis Comments: SCDs in place. - Routine Skin Exam Absent: cyanosis, erythema - Routine Neurological Exam Present: alert, altered mental status (Mild he is awake and answers questions appropriately but has a somewhat flat affect.), moving all extremities, normal speech (No slurred speech. Answers questions appropriately.). Absent: motor deficit - Routine Psychiatric Exam Present: cooperative. Absent: normal affect (flat affect.), anxious, agitated - Urinary Catheter Management Indwelling Urethral Catheter Cath placed during this visit: yes, but has since been removed by the nurse Reason for continuing: Acute urinary retention Insertion date: 12/18/17 Removal date: 12/18/17 Removal time: 15:30 <Bull Lazar - Last Filed: 12/22/17 09:41> Vital signs: Vital Signs 12/21/17 16:22 12/21/17 20:00 12/21/17 20:22 Temperature 101.5 F H 99.2 F Pulse Rate 83 83 Respiratory Rate 20 18 Blood Pressure 136/70 136/73 Pulse Oximetry 92 L 95 93 L 12/22/17 00:00 12/22/17 02:42 12/22/17 04:00 Temperature 102.9 F H 98.1 F 98.7 F Pulse Rate 101 H 96 H 91 H Respiratory Rate 24 20 Blood Pressure 106/53 L 77/53 L Pulse Oximetry 91 L 93 L 92 L 12/22/17 04:45 12/22/17 08:00 12/22/17 12:00 Temperature 98.1 F 98.3 F 97.3 F L Pulse Rate 88 73 71 Respiratory Rate 18 18 18 Blood Pressure 98/54 L 85/54 L 103/64 Pulse Oximetry 93 L 95 96 Intake & Output 12/21/17 12/22/17 12/22/17 18:59 06:59 18:59 Intake Total 480 / 480 360 / 360 Output Total 1400 / 1400 Balance -920 / -920 360 / 360 Weight 96.4 kg Intake: Oral 480 / 480 360 / 360 Output: Urine 1400 / 1400 Other: # Voids 2 Date of Last Bowel Movement 12/18/17 # Bowel Movements 0 - Urinary Catheter Management Indwelling Urethral Catheter Cath placed during this visit: no <Reji Matos - Last Filed: 12/22/17 12:38> Assessment and Plan - Assessment (1) Chronic low back pain with bilateral sciatica Code(s): M54.41 - Lumbago with sciatica, right side; M54.42 - Lumbago with sciatica, left side; G89.29 - Other chronic pain Status: Chronic (2) Lumbar degenerative disc disease Code(s): M51.36 - Other intervertebral disc degeneration, lumbar region Status : Chronic (3) Spondylolisthesis, lumbar region Code(s): M43.16 - Spondylolisthesis, lumbar region Status: Chronic (4) Lumbar facet arthropathy Code(s): M47.816 - Spondylosis without myelopathy or radiculopathy, lumbar region Status: Chronic (5) Neural foraminal stenosis of lumbosacral spine Code(s): M99.83 - Other biomechanical lesions of lumbar region Status: Chronic - Plan 72 y/o M s/p L4-5 and L5-S1 interbody fusion; L4, L5 and S1 decompressive laminotomies with facetectomies and foraminotomies; L4-S1 pedicle screw fixation ; L4-5 interbody cage placement; microsurgical technique on 12/18/17. He has incisional pain. Pt has developed hypotension, leukocytosis, and elevated Cr and decreased GFR. P: Transfer to ICU STAT. Hospitalist has started IV antibiotics for sepsis. Pt getting STAT IVF bolus. Updated pts at bedside. <Bull Lazar - Last Filed: 12/22/17 09:41> - Attending Attestation The exam, history, and the medical decision-making described in the above note were completed with the assistance of the mid-level provider. I reviewed and agree with the findings presented. I attest that I had a [id number] encounter with the patient on the same day, and personally performed and documented my assessment and findings in the medical record. Patient was hypotensive this a.m. but not symptomatic which has resolved with fluid boluses. He does have a right basilar infiltrate and was started on Zosyn in addition to Levaquin. Encourage pulmonary toilet and incentive spirometry as well as up in chair and ambulation with physical therapy. He is on aspirin and subQ heparin and will also restart his Coumadin. Rehab placement once cleared from a medical standpoint. Discussed with the hospitalist Dr. John. <Reji Matos - Last Filed: 12/22/17 12:38>
[2017-12-22] MEDS: Senna/Docusate Sodium 8.6/50 MG Tablet PO SCH ×2 (10:42→20:56)
[2017-12-22] MEDS: Calcium Carbonate 500 MG Tablet PO SCH ×2 (10:42→20:54)
[2017-12-22] MEDS: Magnesium Oxide 400 MG Tablet PO SCH (10:44)
[2017-12-22] MEDS: Carvedilol 12.5 MG Tablet PO SCH ×2 (10:45→20:55)
[2017-12-22] MEDS: Lisinopril 20 MG Tablet PO SCH (10:46)
[2017-12-22] MEDS: Piperacil/Tazo 3.375 GM Premix 50 ML IV.SIG SCH ×2 (11:46→16:00)
[2017-12-22] MEDS ORDERED: Sod Phosphate/Sod Biphosphate (Adult) Enema 133 ML Bottle RECTAL PRN (15:00)
[2017-12-22] MEDS ORDERED: Magnesium Citrate Liq 300 ML Bottle PO ONE (15:01)
[2017-12-22] MEDS ORDERED: levoFLOXacin 750 MG Tablet PO SCH (16:00)
--- NOTE | 2017-12-22 17:14 | P.PN ---
Subjective Interval history: Follow-up for hypertension, sepsis, aspiration pneumonia, lumbar degenerative disc disease. Patient was seen initially in the morning -he appeared to be somewhat lethargic. His blood pressure was low in the 70s and 80s systolic. He had a fever of 102.9 F last night. He denies any chest pain, shortness of breath, cough, abdominal pain. Physical Exam Vital signs: Vital Signs 12/21/17 20:00 12/21/17 20:22 12/22/17 00:00 Temperature 99.2 F 102.9 F H Pulse Rate 83 101 H Respiratory Rate 18 24 Blood Pressure 136/73 106/53 L Pulse Oximetry 95 93 L 91 L 12/22/17 02:42 12/22/17 04:00 12/22/17 04:45 Temperature 98.1 F 98.7 F 98.1 F Pulse Rate 96 H 91 H 88 Respiratory Rate 20 18 Blood Pressure 77/53 L 98/54 L Pulse Oximetry 93 L 92 L 93 L 12/22/17 08:00 12/22/17 12:00 12/22/17 16:00 Temperature 98.3 F 97.3 F L 97.3 F L Pulse Rate 73 71 73 Respiratory Rate 18 18 18 Blood Pressure 85/54 L 103/64 111/56 L Pulse Oximetry 95 96 95 Intake & Output 12/21/17 12/22/17 12/22/17 18:59 06:59 18:59 Intake Total 480 / 480 360 / 360 Output Total 1400 / 1400 Balance -920 / -920 360 / 360 Weight 96.4 kg Intake: Oral 480 / 480 360 / 360 Output: Urine 1400 / 1400 Other: # Voids 2 Date of Last Bowel Movement 12/18/17 12/18/17 # Bowel Movements 0 Narrative: GENERAL: This is a well-nourished, well-developed patient, initially in the morning he appears to be somewhat lethargic. SKIN: No rashes, ecchymoses or lesions. Warm and dry. HEAD: Atraumatic. Normocephalic. No temporal or scalp tenderness. EYES: Pupils equal round and reactive. No injection or drainage. ENT: Nose without bleeding, purulent drainage or septal hematoma. Airway patent. NECK: Trachea midline. No lymphadenopathy. Supple, nontender, no meningeal signs. CARDIOVASCULAR: Regular rate and rhythm without murmurs, gallops, or rubs. No JVD. RESPIRATORY: Clear to auscultation. Breath sounds equal bilaterally. No wheezes , rhonchi. Mild bibasilar crackles noted. GASTROINTESTINAL: Abdomen soft, non-tender, nondistended. No guarding. MUSCULOSKELETAL: Extremities without clubbing, cyanosis, or edema. NEUROLOGICAL: Awake and alert. Cranial nerves II through XII intact. No focal neurological deficits. Normal speech. - Urinary Catheter Management Indwelling Urethral Catheter Cath placed during this visit: yes, but has since been removed by the nurse Reason for continuing: Acute urinary retention Insertion date: 12/18/17 Removal date: 12/18/17 Removal time: 15:30 Results - Labs CBC & Chem 7: 12/22/17 03:37 12/22/17 03:37 Laboratory Results - last 24 hr 12/21/17 12/21/17 12/22/17 17:22 17:22 03:37 WBC 8.3 13.1 H D RBC 2.89 L 3.13 L Hgb 10.4 L 10.8 L Hct 29.1 L 31.8 L MCV 100.7 H 101.7 H MCH 35.9 H 34.5 H MCHC 35.6 33.9 RDW 13.8 13.7 Plt Count 149 L 184 MPV 7.1 7.5 Prelim Diff (Auto) Slide review pending Neut % (Auto) 75.6 H 87.6 H Lymph % (Auto) 13.2 5.1 L Hind[place] % (Auto) 10.5 H 7.0 Eos % (Auto) 0.4 0.1 Baso % (Auto) 0.3 0.2 Neut # (Auto) 6.3 11.4 H Lymph # (Auto) 1.1 0.7 L [place] # (Auto) 0.9 0.9 Eos # (Auto) 0.0 0.0 Baso # (Auto) 0.0 0.0 WBC Differential . . Diff Scan Auto diff confirmed Differential Comment Auto diff final . Platelet Estimate Normal Platelet Morphology Normal Sodium 133 L Potassium 4.1 Chloride 97 L Carbon Dioxide 27.2 Anion Gap 9 BUN 14 Creatinine 1.23 Estimated GFR 58 L Random Glucose 122 H Lactic Acid Calcium 9.0 12/22/17 12/22/17 12/22/17 03:37 10:46 13:37 WBC RBC Hgb Hct MCV MCH MCHC RDW Plt Count MPV Prelim Diff (Auto) Neut % (Auto) Lymph % (Auto) [place] % (Auto) Eos % (Auto) Baso % (Auto) Neut # (Auto) Lymph # (Auto) [place] # (Auto) Eos # (Auto) Baso # (Auto) WBC Differential Diff Scan Differential Comment Platelet Estimate Platelet Morphology Sodium 133 L Potassium 3.5 Chloride 96 L Carbon Dioxide 27.8 Anion Gap 9 BUN 16 Creatinine 1.71 H Estimated GFR 40 L Random Glucose 109 H Lactic Acid 2.1 H 3.7 H Calcium 9.6 Microbiology 12/21/17 13:51 Catheterized Urine Urine Culture - Preliminary No growth in 24 hours - Imaging Lumbar Spine X-Ray 12/18/17 00:00 CONCLUSION: 1. L4-S1 posterior fixation, as above. Abdomen X-Ray 12/21/17 00:00 CONCLUSION: 1. Nonobstructed bowel gas pattern. 2. Postsurgical changes as detailed above. 3. Calcific density in the right upper abdominal quadrant is overtly benign but nonspecific. Patient is status post cholecystectomy and the nodule projects over the hepatic dome. This could represent a large calcified granuloma. Chest X-Ray 12/21/17 00:00 CONCLUSION: 1. Right basilar density likely infiltrate. 2. Cardiomegaly. Assessment and Plan - Plan Mr. Trinidad is a 72-year-old male with a history of CAD, pulmonary embolism who underwent elective surgery of L4-L5 and L5-S1 on 12/18/2017. Hospital service was consulted for medical management and possible ileus. Patient reports no bowel movement in the last few days. He does not want to take any suppositories. He has had 2 episodes of low-grade fever. Sepsis (fever 102.9 F, pulse rate 91-101, white blood cell count 13.1 K, suspected infection aspiration pneumonia) Aspiration pneumonia (CXR shows right basilar infiltrates) Hypotension (BP in the 70s, 80s systolic). -Chest x-ray which showed right basilar density likely infiltrate. -D/C Levaquin, Flagyl. Will start patient on Zosyn 4.5g Q6hrs. -NS bolus 2L and then NS at 50cc/hour. After 2L of NS, patient's BP improved. -We checked on patient later - he appears to be much more alert. -We decided not to transfer patient to ICU today. I discussed with Neurosurgeon Dr. Matos who agrees. Lumbar area degenerative disc disease -Status post L4-L5 and L5-S1 interbody fusion, decompressive surgery. -Continue acetaminophen, Flexeril, [place], morphine for pain management. Constipation -Patient received lactulose as well as milk of magnesia. He does not want to take any suppository. -Patient had a large BM this afternoon. Full code. Patient was on Warfarin at home. We will continue anti-coagulation when okay with Neurosurgery. Total critical care time spent over 35 minutes.
[2017-12-22] MEDS ORDERED: Thiamine Inj 100 MG in Sodium Chlor 0.9% Inj 100 ML IV.SIG ONE (22:28)
[2017-12-23] MEDS: Heparin - SQ 10,000 UNITS/ML Vial SQ SCH ×3 (00:32→15:13)
[2017-12-23] MEDS: Piperacil/Tazo 3.375 GM Premix 50 ML IV.SIG SCH ×4 (00:33→18:12)
[2017-12-23] MEDS: Sod Chloride 0.9% Inj 1,000 ML IV.CONT SCH ×2 (00:38→12:20)
[2017-12-23 01:45] LABS: Baso % (Auto) 0.2 % (0.0-2.0); Eos % (Auto) 0.1 % (0.0-4.0); Hematocrit 30.3 % (39.0-51.0); Hemoglobin 10.5 gm/dL (13.0-17.0); Lymph # (Auto) 0.4 th/mm3 (1.0-4.8); Lymph % (Auto) 10.3 % (9.0-44.0); Mean Corpuscular HGB Conc 34.5 % (32.0-36.0); Mean Corpuscular Hemoglobin 34.7 pg (27.0-34.0); Mean Corpuscular Volume 100.7 fL (80.0-100.0); Mean Platelet Volume 7.4 fL (7.0-11.0); Mono # (Auto) 0.6 th/mm3 (0.0-0.9); Mono % (Auto) 14.1 % (0.0-8.0); Neut % (Auto) 75.3 % (16.0-70.0); Platelet Count 159 th/mm3 (150-450); Red Blood Count 3.01 mil/mm3 (4.50-5.90); Red Cell Distribution Width 13.8 % (11.6-17.2)
[2017-12-23 02:08] LABS: Calcium 8.7 mg/dL (8.5-10.1); Carbon Dioxide 24.5 meq/L (21.0-32.0); Potassium 3.3 meq/L (3.5-5.1)
[2017-12-23] MEDS: Calcium Carbonate 500 MG Tablet PO SCH (08:53)
[2017-12-23] MEDS: Lisinopril 20 MG Tablet PO SCH (08:54)
[2017-12-23] MEDS: Carvedilol 12.5 MG Tablet PO SCH (08:54)
[2017-12-23] MEDS: Senna/Docusate Sodium 8.6/50 MG Tablet PO SCH (08:54)
--- NOTE | 2017-12-23 11:32 | P.PN ---
Subjective Interval history: Follow-up for hypertension, sepsis, aspiration pneumonia, lumbar degenerative disc disease. It is currently doing well. No fever or chills. Overnight he had one episode of low blood pressure but MAP was 68. Per patient's family, patient has been somewhat confused and has been experiencing some hallucinations. Physical Exam Vital signs: Vital Signs 12/22/17 12:00 12/22/17 16:00 12/22/17 20:00 Temperature 97.3 F L 97.3 F L 98.1 F Pulse Rate 71 73 83 Respiratory Rate 18 18 17 Blood Pressure 103/64 111/56 L 92/55 L Pulse Oximetry 96 95 97 12/22/17 21:32 12/23/17 00:00 12/23/17 04:00 Temperature 98.5 F 98.1 F Pulse Rate 109 H 83 Respiratory Rate 17 17 Blood Pressure 135/66 105/63 Pulse Oximetry 97 93 L 94 L 12/23/17 08:00 Temperature 98.2 F Pulse Rate 83 Respiratory Rate 16 Blood Pressure 124/76 Pulse Oximetry 95 Intake & Output 12/22/17 12/23/17 12/23/17 18:59 06:59 18:59 Intake Total 700 / 700 1151 / 1151 Output Total 500 / 500 775 / 775 Balance 200 / 200 376 / 376 Weight 103.7 kg Intake: IV 100 / 100 1151 / 1151 Zosyn 3.375 GM Premix 50 ML @ 100 / 100 50 / 50 200 mls/hr IV.SIG Q6H SHARLA Rx#: [id number] NS Inj 1,000 ML @ Wide Open IV. 1000 / 1000 SIG BOLUS SHARLA Rx#:[id number] Thiamine Inj 100 MG In NS Inj 101 / 101 100 ML @ 100 mls/hr IV.SIG ONCE ONE Rx#:[id number] Oral 600 / 600 Output: Urine 500 / 500 Emesis 250 / 250 Urine Amount (Catheter) 525 / 525 Indwelling Urethral Catheter 525 / 525 Other: Date of Last Bowel Movement 12/22/17 12/22/17 # Bowel Movements 1 1 Narrative: GENERAL: This is a well-nourished, well-developed patient. NAD SKIN: No rashes, ecchymoses or lesions. Warm and dry. HEAD: Atraumatic. Normocephalic. No temporal or scalp tenderness. EYES: Pupils equal round and reactive. No injection or drainage. ENT: Nose without bleeding, purulent drainage or septal hematoma. Airway patent. NECK: Trachea midline. No lymphadenopathy. Supple, nontender, no meningeal signs. CARDIOVASCULAR: Regular rate and rhythm without murmurs, gallops, or rubs. No JVD. RESPIRATORY: Clear to auscultation. Breath sounds equal bilaterally. No wheezes , rhonchi. Mild bibasilar crackles noted. GASTROINTESTINAL: Abdomen soft, non-tender, nondistended. No guarding. MUSCULOSKELETAL: Extremities without clubbing, cyanosis, or edema. NEUROLOGICAL: Awake and alert. Cranial nerves II through XII intact. No focal neurological deficits. Normal speech. - Urinary Catheter Management Indwelling Urethral Catheter Cath placed during this visit: yes, but has since been removed by the nurse Reason for continuing: Acute urinary retention Insertion date: 12/18/17 Removal date: 12/18/17 Removal time: 15:30 Results - Labs CBC & Chem 7: 12/23/17 01:33 12/23/17 01:33 Laboratory Results - last 24 hr 12/22/17 12/23/17 12/23/17 13:37 01:33 01:33 WBC 4.0 D RBC 3.01 L Hgb 10.5 L Hct 30.3 L MCV 100.7 H MCH 34.7 H MCHC 34.5 RDW 13.8 Plt Count 159 MPV 7.4 Neut % (Auto) 75.3 H Lymph % (Auto) 10.3 [place] % (Auto) 14.1 H Eos % (Auto) 0.1 Baso % (Auto) 0.2 Neut # (Auto) 3.0 Lymph # (Auto) 0.4 L [place] # (Auto) 0.6 Eos # (Auto) 0.0 Baso # (Auto) 0.0 WBC Differential . Differential Comment Auto diff final Sodium 133 L Potassium 3.3 L Chloride 97 L Carbon Dioxide 24.5 Anion Gap 12 BUN 35 H Creatinine 2.36 H Estimated GFR 27 L Random Glucose 130 H Lactic Acid 3.7 H Calcium 8.7 D 12/23/17 01:33 WBC RBC Hgb Hct MCV MCH MCHC RDW Plt Count MPV Neut % (Auto) Lymph % (Auto) [place] % (Auto) Eos % (Auto) Baso % (Auto) Neut # (Auto) Lymph # (Auto) [place] # (Auto) Eos # (Auto) Baso # (Auto) WBC Differential Differential Comment Sodium Potassium Chloride Carbon Dioxide Anion Gap BUN Creatinine Estimated GFR Random Glucose Lactic Acid 1.6 Calcium Microbiology 12/21/17 13:51 Catheterized Urine Urine Culture - Final No growth in 48 hours Assessment and Plan - Plan Mr. Trinidad is a 72-year-old male with a history of CAD, pulmonary embolism who underwent elective surgery of L4-L5 and L5-S1 on 12/18/2017. Hospital service was consulted for medical management and possible ileus. Patient reports no bowel movement in the last few days. He does not want to take any suppositories. He has had 2 episodes of low-grade fever. Sepsis (fever 102.9 F, pulse rate 91-101, white blood cell count 13.1 K, suspected infection aspiration pneumonia) Aspiration pneumonia (CXR shows right basilar infiltrates) Hypotension (BP in the 70s, 80s systolic). -Chest x-ray showed right basilar density likely infiltrate. -Continue Zosyn 4.5g Q6hrs. -WBC improved from 13K to 4K, patient is afebrile, Lactic acid improved from 3.7 to 1.6. -If he remains afebrile, we may consider switching to PO Augmentin tomorrow. Lumbar area degenerative disc disease -Status post L4-L5 and L5-S1 interbody fusion, decompressive surgery. -Continue acetaminophen, Flexeril, [place], morphine for pain management. Constipation -Patient received lactulose as well as milk of magnesia. He does not want to take any suppository. -Patient had a large BM this afternoon. Acute kidney injury - Baseline creatinine 1.0. Creatinine elevated to 1.71 --> 2.36. Likely due to hypotensive episodes. - Continue IV fluid. Will request a Nephrology consultation. - Start Tamsulosin 0.4mg Qday. D/C Lisinopril. Full code. Heparin SQ.
[2017-12-23] MEDS: Magnesium Oxide 400 MG Tablet PO SCH (12:19)
--- NOTE | 2017-12-23 13:13 | P.PNNS ---
Subjective Interval history: Stable Physical Exam Vital signs: Vital Signs 12/22/17 16:00 12/22/17 20:00 12/22/17 21:32 Temperature 97.3 F L 98.1 F Pulse Rate 73 83 Respiratory Rate 18 17 Blood Pressure 111/56 L 92/55 L Pulse Oximetry 95 97 97 12/23/17 00:00 12/23/17 04:00 12/23/17 08:00 Temperature 98.5 F 98.1 F 98.2 F Pulse Rate 109 H 83 83 Respiratory Rate 17 17 16 Blood Pressure 135/66 105/63 124/76 Pulse Oximetry 93 L 94 L 95 12/23/17 11:45 Temperature 98.2 F Pulse Rate 73 Respiratory Rate 16 Blood Pressure 151/85 H Pulse Oximetry 97 Intake & Output 12/22/17 12/23/17 12/23/17 18:59 06:59 18:59 Intake Total 700 / 700 1151 / 1151 1000 / 1000 Output Total 500 / 500 775 / 775 Balance 200 / 200 376 / 376 1000 / 1000 Weight 103.7 kg Intake: IV 100 / 100 1151 / 1151 1000 / 1000 NS Inj 1,000 ML @ 84 mls/hr IV. 1000 / 1000 CONT .[id number] SHARLA Rx#:[id number] Zosyn 3.375 GM Premix 50 ML @ 100 / 100 50 / 50 200 mls/hr IV.SIG Q6H SHARLA Rx#: [id number] NS Inj 1,000 ML @ Wide Open IV. 1000 / 1000 SIG BOLUS SHARLA Rx#:[id number] Thiamine Inj 100 MG In NS Inj 101 / 101 100 ML @ 100 mls/hr IV.SIG ONCE ONE Rx#:[id number] Oral 600 / 600 Output: Urine 500 / 500 Emesis 250 / 250 Urine Amount (Catheter) 525 / 525 Indwelling Urethral Catheter 525 / 525 Other: Date of Last Bowel Movement 12/22/17 12/22/17 # Bowel Movements 1 1 Narrative: Incision c/d/i Full strength UE/LE Brace, getting up with PT Lopez in place to measure Urine Output/Kidney function - Urinary Catheter Management Indwelling Urethral Catheter Cath placed during this visit: yes, but has since been removed by the nurse Reason for continuing: Acute urinary retention Insertion date: 12/18/17 Removal date: 12/18/17 Removal time: 15:30 Assessment and Plan - Plan 72 y/o M s/p L4-5 and L5-S1 interbody fusion; L4, L5 and S1 decompressive laminotomies with facetectomies and foraminotomies; L4-S1 pedicle screw fixation ; L4-5 interbody cage placement; microsurgical technique on 12/18/17. He has incisional pain. Pt has developed hypotension, leukocytosis, and elevated Cr and decreased GFR. P: Mobilize with PT Lopez in place to monitor kidney function
--- NOTE | 2017-12-23 13:16 | P.CONNP ---
<Aydee Pickens - Last Filed: 12/23/17 12:57> History of Present Illness Service: Nephrology Consult date: 12/23/17 Requesting Physician: Juarez John Reason for Consult: Acute kidney injury Primary Care Provider: Aaron Shah History of Present Illness: Patient is a pleasant 72-year-old male with a history of coronary artery disease, pulmonary embolism, hypertension, hyperlipidemia,and GERD. He underwent L4-L5 and L5-S1 surgery on 12/18/2017 due to long-standing low back pain. Patient developed postop ileus. Nephrology is consulted for acute kidney injury with a creatinine of 2.36. No past medical history of chronic kidney disease reported. Creatinine noted to be 1.0 on 12/18. Has indwelling Feliciano catheter for retention and has had a drop in urinary output. Drinking plenty of fluids. Denies any shortness of breath, chest pain, nausea, vomiting, or loose stools. Pain is well controlled with back brace on. PMF - History History Provided By: Patient - Medical History Medical History: Medical History (Last Reviewed 12/23/17 @ 09:18 by Mirtha Padron) Arthritis Back pain at L4-L5 level Esophageal hiatal hernia Full dentures GERD (gastroesophageal reflux disease) Hypertension Uses hearing aid - Surgical History Surgical History: Surgical History (Last Reviewed 12/23/17 @ 09:18 by Mirtha Padron) H/O heart artery stent Hx of cholecystectomy Status post insertion of spinal cord stimulator - Tobacco History Second Hand Smoke Exposure: No Tobacco Use In Past 30 Days: No Smoking Status: Former smoker Tobacco Type: Cigarettes - Alcohol History How Often Do You Have a Drink Containing Alcohol: 4 or more times a week - Substance Use History Substance History: No History of Abuse - Travel History Recent Travel in the [place] Within the Last 8 Weeks: No Recent Travel Out of the Country Within the Last 8 Weeks: No - Immunization History Tetanus Immunization: <5 Years Hx Influenza Vaccine This Season: No Medications and Allergies Allergies Allergy/AdvReac Type Severity Reaction Status Date / Time No Known Allergies Allergy Verified 12/18/17 07:05 Home Medications Medication Instructions Recorded Confirmed Type aspirin [Aspirin Low Dose] 81 mg PO DAILY 12/12/17 12/18/17 History calcium carbonate [Calcium 600] 600 mg PO BID 12/12/17 12/18/17 History carvedilol 12.5 mg PO BID 12/12/17 12/18/17 History hydrocodone-acetaminophen 1 tab PO Q6H PRN 12/12/17 12/18/17 History lisinopril 20 mg PO DAILY 12/12/17 12/18/17 History magnesium oxide 400 mg PO DAILY 12/12/17 12/18/17 History multivitamin [Daily Multiple] 1 tab PO DAILY 12/12/17 12/18/17 History omega 3-[id number]-fish oil [Fish Oil] 3 cap PO DAILY 12/12/17 12/18/17 History omeprazole 40 mg PO DAILY 12/12/17 12/18/17 History simvastatin 40 mg PO QPM 12/12/17 12/18/17 History warfarin [Coumadin] 5 mg PO 5XW 12/12/17 12/18/17 History warfarin [Coumadin] 7.5 mg PO 2XWEEK 12/12/17 12/18/17 History Active Medications: Active Medications Acetaminophen (Tylenol) 650 mg PO Q4H PRN PRN Reason: TEMPERATURE > 101.5 F Last Admin: 12/22/17 01:26 Dose: 650 mg Hydrocodone Bitart/Acetaminophen (Albertson 10/325) 1 tab PO Q4H PRN PRN Reason: Pain Scale 1 To 5 Last Admin: 12/23/17 08:54 Dose: 1 tab Hydrocodone Bitart/Acetaminophen ([place]bertson 10/325) 2 tab PO Q4H PRN PRN Reason: PAIN SCALE 6 TO 10 Last Admin: 12/23/17 12:29 Dose: 2 tab Al Hydrox/Mg Hydrox/Simethicone (Mag-Al Plus Susp Liq) 30 ml PO Q6H PRN PRN Reason: DYSPEPSIA Al Hydroxide/Mg Hydroxide (Milk Of Magnesia Liq) 30 ml PO Q12H PRN PRN Reason: Mild Constipation Albuterol (Albuterol Neb (Prn)) 2.5 mg NEB Q4HR NEB PRN PRN Reason: WHEEZING Aspirin (Ecotrin) 81 mg PO DAILY [facility] Last Admin: 12/23/17 08:54 Dose: 81 mg Bisacodyl (Dulcolax Supp) 10 mg RECTAL DAILY PRN PRN Reason: SEVERE CONSITIPATION Last Admin: 12/22/17 10:45 Dose: 10 mg Calcium Carbonate (Oscal) 500 mg PO BID [facility] Last Admin: 12/23/17 08:53 Dose: 500 mg Carvedilol (Coreg) 12.5 mg PO BID [facility] Last Admin: 12/23/17 08:54 Dose: 12.5 mg Clonidine HCl (Catapres) 0.1 mg NG/OG Q6H PRN PRN Reason: SYS BP GREATER THAN 170 MMHG Last Admin: 12/20/17 22:37 Dose: 0.1 mg Cyclobenzaprine HCl (Flexeril) 10 mg PO Q8H PRN PRN Reason: MUSCLE SPASM Last Admin: 12/22/17 06:43 Dose: 10 mg Heparin Sodium (Porcine) (Heparin Inj) 5,000 units SQ Q8HR [facility] Last Admin: 12/23/17 06:15 Dose: 5,000 units Sodium Chloride (Ns Inj) 500 mls @ 30 mls/hr IV.SIG .Q10H [facility] Last Admin: 12/18/17 08:15 Dose: Not Given Calcium Gluconate 1 gm/ Sodium (Chloride) 110 mls @ 110 mls/hr IV.SIG UNSCH PRN PRN Reason: SEE LABEL COMMENTS Magnesium Sulfate 2 gm/ Sodium (Chloride) 100 mls @ 100 mls/hr IV.SIG UNSCH PRN PRN Reason: MAGNESIUM LESS THAN 2 Last Infusion: 12/18/17 16:27 Dose: Infused Potassium Chloride (Kcl 20 Meq Premix Inj) 20 meq in 100 mls @ 50 mls/hr IV.SIG UNSCH PRN PRN Reason: POTASSIUM LESS THAN 4 Piperacillin/Tazobactam/Dextrose (Zosyn 3.375 Gm Premix) 50 mls @ 200 mls/hr IV.SIG Q6H [facility] Last Admin: 12/23/17 12:20 Dose: 200 mls/hr Sodium Chloride (Ns Inj) 1,000 mls @ 0 mls/hr IV.SIG BOLUS [facility] Stop: 12/24/17 09:01 Last Admin: 12/23/17 12:20 Dose: 84 mls/hr Sodium Chloride (Ns Inj) 1,000 mls @ 0 mls/hr IV.SIG BOLUS [facility] Last Infusion: 12/23/17 00:39 Dose: Infused Sodium Chloride (Ns Inj) 1,000 mls @ 84 mls/hr IV.CONT .[id number] [facility] Last Admin: 12/23/17 12:20 Dose: 84 mls/hr Lactulose (Lactulose Liq) 30 ml PO BID [facility] Last Admin: 12/23/17 08:53 Dose: 30 ml Lisinopril (Prinivil) 20 mg PO DAILY [facility] Last Admin: 12/23/17 08:54 Dose: 20 mg Magnesium Oxide (Mag-Ox) 400 mg PO DAILY@1100 [facility] Last Admin: 12/23/17 12:19 Dose: 400 mg Menthol ([place]) 1 lozenge BUCCAL UNSCH PRN PRN Reason: SORE THROAT Morphine Sulfate (Morphine Inj) 4 mg IV.PUSH Q4H PRN PRN Reason: Pain Scale 7 to 10 Last Admin: 12/20/17 17:49 Dose: 4 mg Multivitamins (Theragran) 1 tab PO DAILY [facility] Last Admin: 12/23/17 08:54 Dose: 1 tab Ondansetron HCl (Zofran Inj) 4 mg IV.PUSH Q6H PRN PRN Reason: NAUSEA OR VOMITING Last Admin: 12/23/17 00:43 Dose: 4 mg Pantoprazole Sodium (Protonix) 40 mg PO DAILY [facility] Last Admin: 12/23/17 08:54 Dose: 40 mg Pravastatin Sodium (Pravachol) 80 mg PO DAILY@2100 [facility] Last Admin: 12/22/17 20:54 Dose: 80 mg Promethazine HCl (Phenergan Inj) 25 mg IM Q4H PRN PRN Reason: NAUSEA OR VOMITING Senna/Docusate Sodium (Freida-Colace) 1 tab PO BID [facility] Last Admin: 12/23/17 08:54 Dose: 1 tab Sennosides (Senokot) 17.2 mg PO Q12H PRN PRN Reason: Moderate Constipation Last Admin: 12/22/17 10:44 Dose: 17.2 mg Warfarin Sodium (Coumadin) 5 mg PO DAILY@1600 [facility] Last Admin: 12/22/17 17:36 Dose: 5 mg Zolpidem Tartrate (Ambien) 5 mg PO HS PRN PRN Reason: INSOMNIA Exam Vital signs: Vital Signs 12/22/17 16:00 12/22/17 20:00 12/22/17 21:32 Temperature 97.3 F L 98.1 F Pulse Rate 73 83 Respiratory Rate 18 17 Blood Pressure 111/56 L 92/55 L Pulse Oximetry 95 97 97 12/23/17 00:00 12/23/17 04:00 12/23/17 08:00 Temperature 98.5 F 98.1 F 98.2 F Pulse Rate 109 H 83 83 Respiratory Rate 17 17 16 Blood Pressure 135/66 105/63 124/76 Pulse Oximetry 93 L 94 L 95 12/23/17 11:45 Temperature 98.2 F Pulse Rate 73 Respiratory Rate 16 Blood Pressure 151/85 H Pulse Oximetry 97 Intake & Output 12/22/17 12/23/17 12/23/17 18:59 06:59 18:59 Intake Total 700 / 700 1151 / 1151 1000 / 1000 Output Total 500 / 500 775 / 775 Balance 200 / 200 376 / 376 1000 / 1000 Weight 103.7 kg Intake: IV 100 / 100 1151 / 1151 1000 / 1000 NS Inj 1,000 ML @ 84 mls/hr IV. 1000 / 1000 CONT .[id number] [facility] Rx#:[id number] Zosyn 3.375 GM Premix 50 ML @ 100 / 100 50 / 50 200 mls/hr IV.SIG Q6H [facility] Rx#: [id number] NS Inj 1,000 ML @ Wide Open IV. 1000 / 1000 SIG BOLUS [facility] Rx#:[id number] Thiamine Inj 100 MG In NS Inj 101 / 101 100 ML @ 100 mls/hr IV.SIG ONCE ONE Rx#:[id number] Oral 600 / 600 Output: Urine 500 / 500 Emesis 250 / 250 Urine Amount (Catheter) 525 / 525 Indwelling Urethral Catheter 525 / 525 Other: Date of Last Bowel Movement 12/22/17 12/22/17 # Bowel Movements 1 1 Narrative: GENERAL: Alert and oriented. In no acute distress SKIN: Warm and dry. NECK: Supple, trachea midline. No JVD. CARDIOVASCULAR: Regular rate and rhythm without murmurs, gallops, or rubs. RESPIRATORY: Breath sounds equal bilaterally. No accessory muscle use. GASTROINTESTINAL: Abdomen soft, non-tender, nondistended. GENITOURINARY: Indwelling feliciano catheter. MUSCULOSKELETAL: No cyanosis, or edema. BACK: Back brace on Results - Lab Results 12/23/17 01:33 12/23/17 01:33 Most recent lab results Calcium 8.7 mg/dL (8.5-10.1) D 12/23/17 01:33 Magnesium 1.2 mg/dL (1.5-2.5) L 12/18/17 13:50 - Image Kidney/bladder ultrasound: pending Assessment and Plan - Assessment (1) Acute kidney injury Code(s): N17.9 - Acute kidney failure, unspecified Status: Acute Plan: Acute kidney injury with a creatinine of 2.36 with decrease in urinary output. No previous history of chronic kidney disease and creatinine is noted to 1.0 on 12/18. Acute kidney injury most likely ATN from hypotension and sepsis.Will order renal ultrasound. Urine osmolarity, sodium and creatinine. Agree with continuing IVF's. Avoid nephrotoxins, ARABELLA inhibitor placed on hold. Maintain indwelling feliciano catheter was reinserted secondary to retention might benefit from Tamsulosin. Will follow urinary output and BMP. (2) Chronic low back pain with bilateral sciatica Code(s): M54.41 - Lumbago with sciatica, right side; M54.42 - Lumbago with sciatica, left side; G89.29 - Other chronic pain Status: Chronic Plan: Status post L4-L5 and L5-S1 interbody fusion, decompressive surgery. (3) Sepsis Code(s): A41.9 - Sepsis, unspecified organism Status: Acute Plan: Continue antibiotics, renal dose as appropriate. <Eb Ma - Last Filed: 12/23/17 19:16> History of Present Illness Primary Care Provider: Aaron Shah [facility] - Medical History Medical History: Medical History (Last Reviewed 12/23/17 @ 09:18 by Mirtha Padron) Arthritis Back pain at L4-L5 level Esophageal hiatal hernia Full dentures GERD (gastroesophageal reflux disease) Hypertension Uses hearing aid - Surgical History Surgical History: Surgical History (Last Reviewed 12/23/17 @ 09:18 by Mirtha Padron) H/O heart artery stent Hx of cholecystectomy Status post insertion of spinal cord stimulator Medications and Allergies Active Medications: Active Medications Acetaminophen (Tylenol) 650 mg PO Q4H PRN PRN Reason: TEMPERATURE > 101.5 F Last Admin: 12/22/17 01:26 Dose: 650 mg Hydrocodone Bitart/Acetaminophen ([place]on 10/325) 1 tab PO Q4H PRN PRN Reason: Pain Scale 1 To 5 Last Admin: 12/23/17 08:54 Dose: 1 tab Hydrocodone Bitart/Acetaminophen ([place] 10/325) 2 tab PO Q4H PRN PRN Reason: PAIN SCALE 6 TO 10 Last Admin: 12/23/17 12:29 Dose: 2 tab Al Hydrox/Mg Hydrox/Simethicone (Mag-Al Plus Susp Liq) 30 ml PO Q6H PRN PRN Reason: DYSPEPSIA Last Admin: 12/23/17 15:13 Dose: 30 ml Al Hydroxide/Mg Hydroxide (Milk Of Magnesia Liq) 30 ml PO Q12H PRN PRN Reason: Mild Constipation Albuterol (Albuterol Neb (Prn)) 2.5 mg NEB Q4HR NEB PRN PRN Reason: WHEEZING Albuterol (Duoneb Neb (Prn)) 1 ampul NEB Q4HR NEB PRN PRN Reason: DYSPNEA Last Admin: 12/23/17 16:26 Dose: 1 ampul Aspirin (Ecotrin) 81 mg PO DAILY [facility] Last Admin: 12/23/17 08:54 Dose: 81 mg Bisacodyl (Dulcolax Supp) 10 mg RECTAL DAILY PRN PRN Reason: SEVERE CONSITIPATION Last Admin: 12/22/17 10:45 Dose: 10 mg Calcium Carbonate (Oscal) 500 mg PO BID [facility] Last Admin: 12/23/17 08:53 Dose: 500 mg Carvedilol (Coreg) 12.5 mg PO BID [facility] Last Admin: 12/23/17 08:54 Dose: 12.5 mg Clonidine HCl (Catapres) 0.1 mg NG/OG Q6H PRN PRN Reason: SYS BP GREATER THAN 170 MMHG Last Admin: 12/20/17 22:37 Dose: 0.1 mg Cyclobenzaprine HCl (Flexeril) 10 mg PO Q8H PRN PRN Reason: MUSCLE SPASM Last Admin: 12/23/17 15:13 Dose: 10 mg Heparin Sodium (Porcine) (Heparin Inj) 5,000 units SQ Q8HR [facility] Last Admin: 12/23/17 15:13 Dose: 5,000 units Sodium Chloride (Ns Inj) 500 mls @ 30 mls/hr IV.SIG .Q10H [facility] Last Admin: 12/18/17 08:15 Dose: Not Given Calcium Gluconate 1 gm/ Sodium (Chloride) 110 mls @ 110 mls/hr IV.SIG UNSCH PRN PRN Reason: SEE LABEL COMMENTS Magnesium Sulfate 2 gm/ Sodium (Chloride) 100 mls @ 100 mls/hr IV.SIG UNSCH PRN PRN Reason: MAGNESIUM LESS THAN 2 Last Infusion: 12/18/17 16:27 Dose: Infused Potassium Chloride (Kcl 20 Meq Premix Inj) 20 meq in 100 mls @ 50 mls/hr IV.SIG UNSCH PRN PRN Reason: POTASSIUM LESS THAN 4 Piperacillin/Tazobactam/Dextrose (Zosyn 3.375 Gm Premix) 50 mls @ 200 mls/hr IV.SIG Q6H [facility] Last Admin: 12/23/17 18:12 Dose: 200 mls/hr Sodium Chloride (Ns Inj) 1,000 mls @ 0 mls/hr IV.SIG BOLUS [facility] Stop: 12/24/17 09:01 Last Admin: 12/23/17 12:20 Dose: 84 mls/hr Sodium Chloride (Ns Inj) 1,000 mls @ 0 mls/hr IV.SIG BOLUS [facility] Last Infusion: 12/23/17 00:39 Dose: Infused Sodium Chloride (Ns Inj) 1,000 mls @ 84 mls/hr IV.CONT .[id number] [facility] Last Admin: 12/23/17 12:20 Dose: 84 mls/hr Lactulose (Lactulose Liq) 30 ml PO BID [facility] Last Admin: 12/23/17 08:53 Dose: 30 ml Magnesium Oxide (Mag-Ox) 400 mg PO DAILY@1100 [facility] Last Admin: 12/23/17 12:19 Dose: 400 mg Menthol ([place]) 1 lozenge BUCCAL UNSCH PRN PRN Reason: SORE THROAT Morphine Sulfate (Morphine Inj) 4 mg IV.PUSH Q4H PRN PRN Reason: Pain Scale 7 to 10 Last Admin: 12/20/17 17:49 Dose: 4 mg Multivitamins (Theragran) 1 tab PO DAILY [facility] Last Admin: 12/23/17 08:54 Dose: 1 tab Ondansetron HCl (Zofran Inj) 4 mg IV.PUSH Q6H PRN PRN Reason: NAUSEA OR VOMITING Last Admin: 12/23/17 00:43 Dose: 4 mg Pantoprazole Sodium (Protonix) 40 mg PO DAILY [facility] Last Admin: 12/23/17 08:54 Dose: 40 mg Pravastatin Sodium (Pravachol) 80 mg PO DAILY@2100 [facility] Last Admin: 12/22/17 20:54 Dose: 80 mg Promethazine HCl (Phenergan Inj) 25 mg IM Q4H PRN PRN Reason: NAUSEA OR VOMITING Senna/Docusate Sodium (Freida-Colace) 1 tab PO BID [facility] Last Admin: 12/23/17 08:54 Dose: 1 tab Sennosides (Senokot) 17.2 mg PO Q12H PRN PRN Reason: Moderate Constipation Last Admin: 12/22/17 10:44 Dose: 17.2 mg Tamsulosin HCl (Flomax) 0.4 mg PO DAILY [facility] Last Admin: 12/23/17 15:13 Dose: 0.4 mg Warfarin Sodium (Coumadin) 5 mg PO DAILY@1600 [facility] Last Admin: 12/23/17 18:12 Dose: 5 mg Zolpidem Tartrate (Ambien) 5 mg PO HS PRN PRN Reason: INSOMNIA Exam Vital signs: Vital Signs 12/22/17 20:00 12/22/17 21:32 12/23/17 00:00 Temperature 98.1 F 98.5 F Pulse Rate 83 109 H Respiratory Rate 17 17 Blood Pressure 92/55 L 135/66 Pulse Oximetry 97 97 93 L 12/23/17 04:00 12/23/17 08:00 12/23/17 11:45 Temperature 98.1 F 98.2 F 98.2 F Pulse Rate 83 83 73 Respiratory Rate 17 16 16 Blood Pressure 105/63 124/76 151/85 H Pulse Oximetry 94 L 95 97 12/23/17 12:00 12/23/17 16:29 Temperature 98.4 F Pulse Rate 86 87 Respiratory Rate 16 18 Blood Pressure 144/79 H Pulse Oximetry 96 96 Intake & Output 12/23/17 12/23/17 12/24/17 06:59 18:59 06:59 Intake Total 1151 / 1151 1050 / 1050 Output Total 775 / 775 250 / 250 Balance 376 / 376 800 / 800 Weight 103.7 kg Intake: IV 1151 / 1151 1050 / 1050 NS Inj 1,000 ML @ 84 mls/hr IV. 1000 / 1000 CONT .[id number] [facility] Rx#:[id number] Zosyn 3.375 GM Premix 50 ML @ 50 / 50 50 / 50 200 mls/hr IV.SIG Q6H [facility] Rx#: [id number] NS Inj 1,000 ML @ Wide Open IV. 1000 / 1000 SIG BOLUS [facility] Rx#:[id number] Thiamine Inj 100 MG In NS Inj 101 / 101 100 ML @ 100 mls/hr IV.SIG ONCE ONE Rx#:[id number] Output: Urine 250 / 250 Emesis 250 / 250 Urine Amount (Catheter) 525 / 525 Indwelling Urethral Catheter 525 / 525 Other: Date of Last Bowel Movement 12/22/17 # Bowel Movements 1 Results - Lab Results 12/23/17 01:33 12/23/17 01:33 Most recent lab results Calcium 8.7 mg/dL (8.5-10.1) D 12/23/17 01:33 Magnesium 1.2 mg/dL (1.5-2.5) L 12/18/17 13:50 Assessment and Plan - Assessment (1) Acute kidney injury Code(s): N17.9 - Acute kidney failure, unspecified Status: Acute Plan: Patient seen and examine, agree with above. Patient with anasarca and develop DICK. Need aggressive diuretic. Will start Bumex gtt. If diuresis is not good, will consider HD and UF. (2) Chronic low back pain with bilateral sciatica Code(s): M54.41 - Lumbago with sciatica, right side; M54.42 - Lumbago with sciatica, left side; G89.29 - Other chronic pain Status: Chronic (3) Sepsis Code(s): A41.9 - Sepsis, unspecified organism Status: Acute
[2017-12-23 13:54] VITALS: BP 144/79; TEMP 98.4; O2SAT 96
[2017-12-23 14:00] LABS: Amorphous Sediment,Urine Many /hpf; Bacteria,Urine Rare /hpf; Bilirubin,Urine Negative (Negative); Clarity,Urine Cloudy (Clear); Color,Urine Amber (Yellw/Straw); Glucose,Urine (UA) Negative (Negative); Leukocyte Esterase,Urine Trace (Negative); Mucus,Urine Few /lpf (Occasional); Nitrite,Urine Negative (Negative); Specific Gravity,Urine 1.026 (1.002-1.035); Squamous Epithelial Cell,Urine <1 /hpf (0-5)
[2017-12-23 14:06] LABS: Creatinine,Urine Random 135 mg/dL (27-300)
[2017-12-23 16:30] VITALS: PULSE 87; RESP 18
--- NOTE | 2017-12-23 20:41 | P.PCN ---
Date of procedure: 12/23/17 Procedure: Date: 12/24/17 Procedure: Cardiopulmonary resuscitation Indication: Asystolic cardiac arrest following large volume aspiration of emesis. Details of procedure: I was called to patient's bedside for CODE BLUE. When I arrived CPR was ongoing. RT was bagging the patient and RN was assisting with suctioning large volumes of nonbilious emesis from the patient's oropharynx. I was informed that patient had recent lumbar fusion and was being treated for aspiration pneumonia and sepsis. He had vomited a large amount immediately prior to cardiac arrest. Patient was in asystole and began administering ACLS drugs per protocol. Airway equipment was assembled and patient was intubated. There was a large amount of emesis seen in his airway during intubation. There was additional emesis suctioned initially from endotracheal tube, though this subsequently cleared and patient was bagged easily via ET tube and had bilateral breath sounds, no sounds auscultated over the stomach. He received epinephrine 8 mg, 150 MEQ of bicarb, calcium chloride 1 g, amiodarone 300 mg IV , 2 L of NS bolused wide open. Defibrillated with 200 J x4 for V fib but had subsequent asystole. Never had return of spontaneous circulation.. Performed bedside cardiac ultrasound and there was complete cardiac standstill. After 33 minutes of ACLS we were unable to restore spontaneous circulation. Patient was pronounced at 20:20 on 12/23/17. I contacted his , Apurva, and informed her. She was very overwhelmed. A friend of hers was with her and she gave the phone to her so that I could update her as well. They said they would call the charge nurse back to let her know if they intended to come see his body prior to transition to the [facility]. I updated the charge nurse. Nurse informed me that she would update neurosurgery.
--- NOTE | 2017-12-23 20:42 | P.PCN ---
Date of procedure: 12/23/17 Procedure: PROCEDURE NOTE PROCEDURE: Endotracheal intubation INDICATION: Cardiac arrest with aspiration and need for definitive airway. DETAILS OF PROCEDURE: CPR was ongoing and patient was being bagged with 100% FiO2 via [id number]. Direct laryngoscopy was performed with a 4 Krishnamurthy laryngoscope blade and a grade 2 Cormack-Lehane view was obtained. A large amount of emesis was suctioned from the oropharynx and solidified gastric content positioned immediately over the glottis was removed with suction. On single attempt a size 8 endotracheal tube was visualized passing through the cords with minimal disruption of chest compressions only as the ETT was actually being passed. Correct placement was confirmed with colorimetric CO2 detector. Breath sounds were equal bilaterally. No sounds auscultated over the stomach. The endotracheal tube was secured at a depth of 24 cm at the lips. RT continued bagging patient and ACLS continued.
--- NOTE | 2017-12-23 23:22 | P.PNADD ---
Addendum to Inpatient Note Reason for Addendum: Additional Documentation Additional information: Residents team (Drs. Nascimento and Florentin) responded to a code at about 1945. We arrived and the code was being led by Dr. Phillips. We assisted with the code until its end. Please see Dr. Phillips' note for details.
== END 2017-12-23 20:20 | disposition expired ==
LOC: HSDI 12-18 06:06 → N06 12-18 15:05
PROVIDERS: ADMIT Neurological Surgery; ATTEND Neurological Surgery
PROC: LAMPLIF (2017-12-18 08:36)